=== PATIENT | male | born 1955 | race Caucasian/White ===

== ENCOUNTER → 2018-04-26 09:11 | Outpatient (REF) | payer OTHER, SELFPAY ==
[2018-04-26 14:17] LABS: HCT 48.4 % (40.0-50.0); HGB 15.7 g/dL (13.5-17.5); Mean Corp. HGB Concentration 32.4 g/dL (32.0-36.0); Mean Corpuscular Hemoglobin 27.2 pg (27.0-33.0); Mean Corpuscular Volume 83.7 fL (80-95); Mean Platelet Volume 11.8 fL (8.0-11.0); Platelet Count 172 x1000/uL (130-400); RBC 5.78 m/cumm (4.50-6.00); White Blood Cell Count 9.24 k/cumm (4.4-10.8)
[2018-04-26 14:35] LABS: ALT 20 U/L (12-78); AST 23 U/L (15-37); Albumin 3.9 g/dL (3.4-5.0); Alkaline Phosphatase 93 U/L (46-116); Anion Gap 12.5 mmol/L (3-11); BUN 13 mg/dL (7-18); Bilirubin, Total 0.3 mg/dL (0.2-1.0); CO2 22.5 mmol/L (21.0-32.0); CREATININE 1.12 mg/dL (0.70-1.30); Calcium 8.7 mg/dL (8.5-10.1); Chloride 105 mmol/L (98-107); Glucose 92 mg/dL (70-100); Potassium 4.4 mmol/L (3.5-5.1); Sodium 140 mmol/L (136-145); Total Protein 7.3 g/dL (6.4-8.2)
[2018-04-29 09:09] LABS: HCV RNA Detection Quantitative Undetected IU/mL (UNDECT)
== END ==
LOC: NCHCN 09:11
PROVIDERS: PCP Family Medicine; Visit Provider Family Medicine
DX: B19.20 Unspecified viral hepatitis C without hepatic coma (principal); Z11.51 Encounter for screening for human papillomavirus (HPV)
CPT/HCPCS: 80053; 85027; 86803; 87522

== ENCOUNTER 2018-09-05 15:21 | Outpatient (REF) | payer OTHER, SELFPAY ==
[2018-09-05 17:54] LABS: HCT 50.3 % (40.0-50.0); HGB 15.9 g/dL (13.5-17.5); Mean Corp. HGB Concentration 31.6 g/dL (32.0-36.0); Mean Corpuscular Volume 85.4 fL (80-95); Mean Platelet Volume 12.8 fL (8.0-11.0); Platelet Count 168 x1000/uL (130-400); RBC 5.89 m/cumm (4.50-6.00); RBC Distribution Width 14.8 % (11.8-14.1); White Blood Cell Count 9.58 k/cumm (4.4-10.8)
[2018-09-05 18:21] LABS: ALT 23 U/L (12-78); AST 23 U/L (15-37); Albumin 3.1 g/dL (3.4-5.0); Alkaline Phosphatase 84 U/L (46-116); Anion Gap 11.4 mmol/L (3-11); BUN 12 mg/dL (7-18); Bilirubin, Total 0.3 mg/dL (0.2-1.0); CO2 23.6 mmol/L (21.0-32.0); Chloride 105 mmol/L (98-107); Glucose 94 mg/dL (70-100); Potassium 4.2 mmol/L (3.5-5.1); Sodium 140 mmol/L (136-145); Total Protein 7.4 g/dL (6.4-8.2)
[2018-09-07 14:42] LABS: HCV RNA Detection Quantitative Undetected IU/mL (UNDECT)
== END 2018-09-05 15:41 ==
LOC: NCHCN 15:21
PROVIDERS: PCP Family Medicine; Visit Provider Family Medicine
DX: B19.20 Unspecified viral hepatitis C without hepatic coma (principal)
CPT/HCPCS: 80053; 85027; 87522

== ENCOUNTER 2019-08-16 00:58 | Outpatient (CLI) | payer MEDICARE, SELFPAY ==
--- NOTE | 2019-08-16 08:09 | DI.US_ITS ---
EXAM: US AAA SCREENING CLINICAL HISTORY: ? AAA, H/O SMOKING, PREVENTATIVE HEALTH CARE,Z00.00 TECHNIQUE: Ultrasound performed using standard protocol. COMPARISON: ABD PELVIS WITH CONTRAST from 02/19/2016 FINDINGS: There is no evidence of an abdominal aortic aneurysm. There is mild mural calcification. The proxim al iliac arteries are normal in diameter. No ascites is seen. IMPRESSION: No evidence of abdominal aortic aneurysm. Mild atherosclerotic changes.
== END 2019-08-16 01:18 ==
PROVIDERS: PCP Family Medicine; Visit Provider Nurse Practitioner Family
DX: Z87.891 Personal history of nicotine dependence; Z13.6 Encounter for screening for cardiovascular disorders
CPT/HCPCS: 76706

== ENCOUNTER → 2019-09-08 03:35 | Outpatient (CLI) | payer MEDICARE, SELFPAY ==
--- NOTE | 2019-09-08 14:06 | DI.US_ITS ---
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 COMPARISON: US AAA SCREENING from 08/16/2019 FINDINGS: Bilateral duplex evaluation of the carotid circulation was performed. There is mild visible atheroma tous plaque in the carotid bulbs bilaterally. There is bilateral antegrade vertebral flow. Flow violeta ocities in the common internal and external carotid arteries are within normal limits bilaterally. IMPRESSION: No evidence of a hemodynamically significant carotid stenosis.
== END ==
PROVIDERS: PCP Family Medicine; Visit Provider Family Medicine
DX: H34.232 Retinal artery branch occlusion, left eye (principal); I65.23 Occlusion and stenosis of bilateral carotid arteries
CPT/HCPCS: 93880

== ENCOUNTER 2020-10-21 16:07 | Outpatient (REF) | payer OTHER, SELFPAY ==
[2020-10-21 17:51] LABS: CREATININE 0.9 mg/dL (0.70-1.30); Calculated LDL 117 mg/dL (<100); Cholesterol 176 mg/dL (<200); HDL Cholesterol 43 mg/dL (40-60); Triglyceride 82 mg/dL (<150)
== END 2020-10-21 16:08 | disposition home or self-care (01) ==
LOC: NCHCN 16:07
PROVIDERS: PCP Family Medicine; Visit Provider Family Medicine
DX: F17.200 Nicotine dependence, unspecified, uncomplicated (principal); E78.89 Other lipoprotein metabolism disorders
CPT/HCPCS: 80061; 82565

== ENCOUNTER 2020-11-05 02:20 | Outpatient (CLI) | payer OTHER, SELFPAY ==
--- NOTE | 2020-11-05 13:30 | DI.CTLCSR_ITS ---
EXAM: CT CHEST LUNG CANCER SCREEN CLINICAL HISTORY: TOBACCO ABUSE, F17.210 TECHNIQUE: Imaging Protocol: Axial computed tomography images with coronal and sagittal reformatted images were created and reviewed COMPARISON: CT ABD PELVIS WITH CONTRAST from 02/19/2016 FINDINGS: Tracheobronchial tree: Patent where visualized. Pulmonary parenchyma: Atelectasis or scarring in the lower lobes. Mild paraseptal emphysema. Lung Nodules: There is a 0.4 cm pulmonary nodule in the right upper lobe (series 7 image 144). There is a ground-glass opacity in the posterior aspect of the right upper lobe. This measures 0.5 cm. Mediastinum and Moira: No dominant adenopathy or fluid collection. Pleura: No effusion or pneumothorax. Heart: The heart is not dilated. No coronary artery calcifications are seen. No pericardial effusion . Aorta: Thoracic aorta non-dilated.Atherosclerosis. Upper abdomen: Unremarkable. Scattered hypodense lesions are seen within the liver consistent with c ysts. These appear stable compared to the CT examination from 02/19/2016. Soft Tissues: Unremarkable. Bones: Within normal limits. Old right rib deformity. Degenerative changes in the spine. IMPRESSION: Right upper lobe pulmonary nodules. Lung RADS Cat 2 - Benign Appearance / Behavior: Nodules with a very low likelihood of becoming a clin ically active cancer due to size or lack of growth Lung-RADS 1.0 CATEGORIES: Category 0 - Prior chest CT exam(s) being located for comparison. Category 1 - Annual screening in 12 months. No nodules or definitely benign nodules. Category 2 - Annual screening in 12 months. Benign appearance. Nodules with low likelihood of becomin g active cancer. Category 3 - 6-month follow-up. Probably benign. Short-term follow-up suggested. Nodules with low lik elihood of becoming active cancer. Category 4A - 3-month follow-up and CT/PET if >8 mm in size. Suspicious finding. Findings which requi re additional testing. Category 4B - Findings which require additional testing and tissue sampling. Suspicious finding. Modifier S- Potentially clinically significant finding. (Non lung cancer) RADIATION DOSE DELIVERED: 97.4mGy.cm Total DLP 97.4mGy.cm Total DLP CTDIvol DATA REPOSITORY: All CT scans at this facility are submitted to the National Radiology Data Registry (NRDR) Dose Index Registry (DIR) with the [employer] (A[employer]). RADIATION OPTIMIZATION: All CT scans at this facility use at least one of these dose optimization te chniques: automated exposure control; mA and/or kV adjustment per patient size (includes targeted exa ms where dose is matched to clinical indication); or iterative reconstruction.
== END 2020-11-05 02:40 ==
PROVIDERS: PCP Family Medicine; Visit Provider Family Medicine
DX: F17.210 Nicotine dependence, cigarettes, uncomplicated (principal); R91.8 Other nonspecific abnormal finding of lung field
CPT/HCPCS: 71271

== ENCOUNTER 2021-08-26 11:42 | Emergency (ER) | payer MEDICARE, SELFPAY ==
[2021-08-26 11:50] VITALS: BP 152/77; PULSE 82; RESP 16; TEMP 36.8; O2SAT 91
--- NOTE | 2021-08-26 12:00 | DI.RAD_ITS ---
Exam(s) XR PORTABLE CHEST AP EXAM: XR PORTABLE CHEST AP CLINICAL HISTORY: cough, congestion TECHNIQUE: COMPARISON: CR CHEST 2 VIEWS PA,LAT from 01/16/2018 FINDINGS: Portable AP chest at 1211 hours. Heart is not enlarged. Lungs appear grossly clear. Old right thor acic deformity again noted, no change from December 2017. No pleural effusion on this frontal film. IMPRESSION: No evidence of acute process. RADIATION DOSE DELIVERED: Total DLP
--- NOTE | 2021-08-26 12:03 | ED.GENADUL_ITS ---
Discharge Plan Disposition Patient Disposition: HOME Condition: Improving Discharge Details Clinical Impression: Acute bronchitis with bronchospasm Primary Care Provider: Scott Yoon ED Provider: George Garcia Home Meds and New Rx's Prescriptions: New doxycycline hyclate 100 mg capsule 100 mg PO BID 10 Days Qty: 20 RF: 0 prednisone 50 mg tablet 50 mg PO DAILY 5 Days Qty: 5 RF: 0 Continued albuterol sulfate [ProAir HFA] 200 PUFF/INH HFA aerosol inhaler 2 puff Inhalation Q4H PRN PRNRF: 0 atorvastatin 40 mg tablet 40 mg PO QPM RF: 0 Incruse Ellipta 62.5 mcg/actuation blister with device 1 inh INHALATION DAILY RF: 0 Discharge Instructions Instructions: Acute Bronchitis (ED) Additional Instructions: Please take antibiotics and prednisone as prescribed. Return to the emergency room for any acute concerns. You will receive a call regarding your COVID-19 test results. Stand Alone Forms: PENDING COVID-19 TESTING Medical Decision Making 66-year-old male with a history of COPD presents with 3 to 4 days of cough, congestion, subjective fever and chills in context of his having upper respiratory illness in their home. He is fully immunized against COVID-19. No current steroids. He has been using his inhaler 2 times per day. Patient is interactive and well-appearing. His oxygenation is 91% on room air and his exam reveals bilateral?Tory wheeze. Differential includes bronchitis with COPD sedation, pneumonitis, walking pneumonia. Patient had screening COVID-19 test, was given oral prednisone, DuoNeb and referred for chest x-ray. Chest x-ray: No acute findings. Improved with DuoNeb. Room air oxygenation is 92 to 93%. No distress. Patient's presentation is consistent with bronchitis. His COVID-19 test is pending. Will treat with a course of prednisone and doxycycline. He understands homecare and return precautions. HPI General Mode of arrival: ambulatory . Date/Time Provider Initiated Documentation: 08/26/21 11:43 . Limitations to Documentation: no limitations . Information obtained by: patient . History of Present Illness 66 year old M presents to the emergency department with the chief complaint of Cough, congestion, described as moderate and similar to prior episodes, and is localized to the chest. Patient reports no radiation. Patient started experiencing this day(s) and it has been intermittent. No relieving factors improve symptom(s), No exacerbating factors reported . Patient notes cough and fever/chills; denies chest pain, loss of appetite, nausea/vomiting and shortness of breath. Patient did receive the following treatments prior to arrival, none Related Data Home Medications Medication Instructions Recorded Confirmed albuterol sulfate [ProAir HFA] 2 puff INHALATION Q4H PRN PRN 01/16/18 08/26/21 Incruse Ellipta 1 inh INHALATION DAILY 08/26/21 08/26/21 atorvastatin 40 mg PO QPM 08/26/21 08/26/21 doxycycline hyclate 100 mg PO BID 10 Days #20 cap 08/26/21 prednisone 50 mg PO DAILY 5 Days #5 tab 08/26/21 Previous Rx's Medication Instructions Recorded doxycycline hyclate 100 mg PO BID 10 Days #20 cap 08/26/21 prednisone 50 mg PO DAILY 5 Days #5 tab 08/26/21 Allergies Allergy/AdvReac Type Severity Reaction Status Date / Time Sulfa (Sulfonamide AdvReac Intermediate Swelling/Ed Unverified 08/26/21 11:59 Antibiotics) cristobal General Stated Complaint: RespSymp ADELE: 3 Review of Systems Narrative: Using inhaler 2 times per day. Stopped smoking this summer. Immunized against Covid x3. Positive sick contacts with his . Feels congestion, minimal sputum production. 8 systems reviewed and otherwise negative PFSH All Active Problems (Updated 08/26/21 @ 12:30 by George Garcia MD) Acute bronchitis with bronchospasm (Acute) Social History Smoking/Tobacco Use Status: Former Tobacco Use Quit Date: 02/27/21 Smoking risk assessment performed?: Yes Alcohol Intake: current Alcohol Intake frequency: holidays/special occasions only Alcohol type: beer Drug use: Never Substance use type: marijuana Do you feel safe at home: Yes Do you feel safe in your relationship?: Yes Exam Narrative Exam Narrative: GEN: awake, alert, oriented 3. Pleasant, well groomed, interactive. HEAD: Normocephalic, atraumatic ENT: Mucous membranes moist, oropharynx unremarkable, External ear exam unremarkable EYES: PERRL, EOMI NECK: Full ROM, no CHAI, no menigismus CHEST/RESP: Nontender, few scant end expiratory wheeze bilateral CARDIOVASCULAR: RRR, no murmur, rub vinicio. 2+ Rad pulse bilateral ABDOMEN: Soft, nontender, no mass. +Bowel sounds EXT: Full ROM, no edema, no rash Neuro: Grossly normal neurologic exam, conversant, interactive. Psych: Speech fluent, thoughts congruent, affect normal Course Vital Signs Vital signs: Vital Signs Temperature 36.8 C 08/26/21 11:50 Pulse 82 08/26/21 11:50 Respiratory Rate 16 08/26/21 11:50 Blood Pressure 152/77 H 08/26/21 11:50 Pulse Oximetry 91 L 08/26/21 11:50 Temperature 36.8 C 08/26/21 11:50 Temperature Source Temporal Artery Scan 08/26/21 11:50 Pulse 82 08/26/21 11:50 Respiratory Rate 16 08/26/21 11:50 Respiratory Effort Non-Labored 08/26/21 11:56 Blood Pressure 152/77 H 08/26/21 11:50 Blood Pressure Position Sitting 08/26/21 11:50 Pulse Oximetry 91 L 08/26/21 11:50 Oxygen Delivery Method Room Air 08/26/21 11:50 Oxygen Flow Rate 0 08/26/21 11:50 Pain Level 0 08/26/21 11:50 Comment 08/26/21 11:50
[2021-08-26] MEDS: predniSONE 20 MG TAB 60 MG PO (12:10)
[2021-08-26 12:12] VITALS: PULSE 83; RESP 16; RESP 4; O2SAT 90
[2021-08-26] MEDS: Albuterol/Ipratropium 3 ML UPD VIAL UPD (12:12)
[2021-08-27 15:08] LABS: COVID-19 RT-PCR UVMMC Result Negative (Negative)
--- NOTE | 2021-08-27 17:34 | NUR.NOTE ---
negative covid result relayed to pt via phone.Nursing Note:
== END 2021-08-26 14:19 | disposition home or self-care (01) ==
PROVIDERS: Emergency Provider Emergency Medicine; PCP Family Medicine
DX: J20.9 Acute bronchitis, unspecified (principal); Z87.891 Personal history of nicotine dependence; R50.9 Fever, unspecified; Z20.822 Contact with and (suspected) exposure to COVID-19; R05.1 Acute cough
CPT/HCPCS: 94640; 99283; U0003; U0005; 71045; J7512; J7620

== ENCOUNTER 2021-10-20 16:19 | Outpatient (REF) | payer OTHER, SELFPAY ==
[2021-10-20 14:30] LABS: HGB 16.4 g/dL (13.5-17.5); MCHC 31.5 % (32.0-36.0); MCV 85.5 fL (80-95); MPV 12.1 fL (8.0-11.0); Platelet Count 191 10^3/uL (130-400); RBC 6.08 10^6/uL (4.36-5.78); RDW 13.2 % (11.8-14.1); RDW-SD 41.4 fL
[2021-10-20 14:43] LABS: Anion Gap 10.8 mmol/L (3-11); BUN 13 mg/dL (7-18); CO2 24.2 mmol/L (21.0-32.0); Calcium 9.2 mg/dL (8.5-10.1); Calculated LDL 84 mg/dL (<100); Chloride 106 mmol/L (98-107); Cholesterol 154 mg/dL (<200); Glucose 97 mg/dL (74-106); HDL Cholesterol 47 mg/dL (40-60); Potassium 4.6 mmol/L (3.5-5.1); Sodium 141 mmol/L (136-145); Triglyceride 115 mg/dL (<150)
== END 2021-10-20 16:20 | disposition home or self-care (01) ==
LOC: NCHCN 16:19
PROVIDERS: PCP Family Medicine; Visit Provider Family Medicine
DX: E78.5 Hyperlipidemia, unspecified (principal); Z00.00 Encounter for general adult medical examination without abnormal findings
CPT/HCPCS: 80048; 80061; 85027

== ENCOUNTER 2021-11-12 18:53 | Outpatient (REF) | payer OTHER, SELFPAY ==
[2021-11-18 11:27] LABS: JAK2 Result see interpretation
== END 2021-11-12 18:54 | disposition home or self-care (01) ==
LOC: NCHCN 18:53
PROVIDERS: PCP Family Medicine; Visit Provider Family Medicine
DX: D75.1 Secondary polycythemia (principal)
CPT/HCPCS: 82668; 81270

== ENCOUNTER → 2021-12-05 01:04 | Outpatient (CLI) | payer OTHER, SELFPAY | PROVIDERS: PCP Family Medicine; Visit Provider Family Medicine ==

== ENCOUNTER 2021-12-23 16:07 | Emergency (ER) | payer OTHER, SELFPAY ==
[2021-12-23] VITALS (12 sets, daily range): BP systolic 131–159; BP diastolic 54–77; PULSE 88–101; RESP 14–24; TEMP 36.9; O2SAT 88–94
--- NOTE | 2021-12-23 16:00 | RT.EKG_ITS ---
APPROVED REPORT Exam: Resting ECG Reason for Exam: overdose Patient Location: E HR:90 bpm ECG Measurements Heart Rate 90 AXIS DE 160 P 65 QRSd 88 QRS 3 QT 382 T 82 QTc 467 Conclusion Sinus rhythm...normal P axis, V-rate 60- 99 Anterior Q >40mS, abnormal ST-T, V2-V5
--- NOTE | 2021-12-23 16:11 | W.ED.GENAD ---
Discharge Plan Disposition Patient Disposition: HOME Condition: Improving Discharge Details Clinical Impression: Overdose of drug Primary Care Provider: Scott Yoon ED Provider: George Garcia Home Meds and New Rx's Prescriptions: Continued albuterol sulfate [ProAir HFA] 200 PUFF/INH HFA aerosol inhaler 2 puff Inhalation Q4H PRN PRN0RF atorvastatin 40 mg tablet 40 mg PO QPM 0RF Label Comments: TAKE 1 TABLET BY MOUTH EVERY NIGHT AT BEDTIME TO PREVENT STROKES Incruse Ellipta 62.5 mcg/actuation blister with device 1 inh INHALATION DAILY 0RF Discharge Instructions Instructions: Adult Overdose (ED) Additional Instructions: Please do not use or abuse illicit drugs. You could have today from overdose. Return if you have difficulty breathing, develop chest pain, or any other acute concerns. Continue your routine medications. Medical Decision Making This is a 66-year-old male brought to the hospital via EMS. He was reported to have used IV cocaine that was given to him by a friend. He was in his car was reported to be seen not breathing and cyanotic by a bystander who administered chest blows and Narcan intranasally with the patient regaining consciousness. He was interviewed at the scene by [facility] police and subsequently transported to the emergency department for evaluation by EMS. He arrives awake, alert and interactive. He has a history of COPD and initial room air oxygenation was 91%. With good respiratory effort it improved to 95 to 96%. Patient denies chest pain. States he feels normal. He states he not been recently ill. Patient was observed, a chest x-ray was obtained. No acute infiltrates present. Discussed with patient further work-up which he declines. He demonstrates to me capacity to request discharge to home. He is stable and appropriate to discharge at this time. Patient admonished to avoid the use of illegal drugs. HPI General Mode of arrival: EMS. Date/Time Provider Initiated Documentation: 12/23/21 16:14. Limitations to Documentation: no limitations. Information obtained by: patient and EMS. History of Present Illness 66 year old M presents to the emergency department with the chief complaint of Overdose, now improved, described as moderate, Patient reports no radiation. Patient started experiencing this unknown and it has been now resolved. improves with No relieving factors improve symptom(s), No exacerbating factors reported . Patient did receive the following treatments prior to arrival, other (Given Narcan by bystander) Related Data Home Medications Medication Instructions Recorded Confirmed albuterol sulfate 90 mcg/actuation 2 puff INHALATION Q4H PRN PRN 01/16/18 12/23/21 aerosol inhaler (ProAir HFA) atorvastatin 40 mg tablet 40 mg PO QPM 08/26/21 12/23/21 umeclidinium 62.5 mcg/actuation 1 inh INHALATION DAILY 08/26/21 12/23/21 blister powder for inhalation (Incruse Ellipta) Allergies Allergy/AdvReac Type Severity Reaction Status Date / Time Sulfa (Sulfonamide AdvReac Intermediate Swelling/Ed Unverified 12/23/21 16:15 Antibiotics) cristobal General ADELE: 3 Review of Systems Narrative: Denies current complaints. Was nauseated in the ambulance, improved with his friend. 6 systems reviewed and otherwise negative PFSH All Active Problems (Updated 12/23/21 @ 16:50 by George Garcia MD) Overdose of drug (Acute) Social History Smoking/Tobacco Use Status: Former Tobacco Use Quit Date: 02/27/21 Smoking risk assessment performed?: Yes Alcohol Intake: current Alcohol Intake frequency: holidays/special occasions only Alcohol type: beer Substance use type: marijuana and crack/cocaine Details: uses majuana regularly Do you feel safe at home: Yes Do you feel safe in your relationship?: Yes Exam Narrative Exam Narrative: GEN: awake, alert, oriented 3. Pleasant, well groomed, interactive. HEAD: Normocephalic, atraumatic ENT: Mucous membranes moist, oropharynx unremarkable, External ear exam unremarkable EYES: PERRL, EOMI NECK: Full ROM, no CHAI, no menigismus CHEST/RESP: Nontender, scattered end expiratory wheeze bilaterally CARDIOVASCULAR: RRR, no murmur, rub vinicio. 2+ Rad pulse bilateral ABDOMEN: Soft, nontender, no mass. +Bowel sounds EXT: Full ROM, no edema, no rash Neuro: Grossly normal neurologic exam, conversant, interactive. Psych: Speech fluent, thoughts congruent, affect normal
--- NOTE | 2021-12-23 16:15 | DI.RAD_ITS ---
Exam(s) XR CHEST 2V PA LATERAL EXAM: XR CHEST 2V PA LATERAL CLINICAL HISTORY: overdose, hx of COPD TECHNIQUE: 2D digital imaging was performed of the chest. Two images were obtained. PA and lateral views were obtained. COMPARISON: CR XR PORTABLE CHEST AP from 08/26/2021 FINDINGS: MEDIASTINUM: Normal. HEART: Normal. PULMONARY VASCULATURE: Normal. LUNGS: Clear. PLEURAL SPACE: No pleural effusion or pneumothorax. BONE:Within normal limits for the patient's age. Stable deformity of the right chest wall. OTHER FINDINGS:Normal. IMPRESSION: No acute pulmonary findings. DATA REPOSITORY: RADIATION DOSE DELIVERED:
== END 2021-12-23 17:11 | disposition home or self-care (01) ==
LOC: ER 17:10
PROVIDERS: Emergency Provider Emergency Medicine; PCP Family Medicine
DX: T40.5X1A Poisoning by cocaine, accidental (unintentional), initial encounter (principal); R40.4 Transient alteration of awareness; J44.9 Chronic obstructive pulmonary disease, unspecified
CPT/HCPCS: 93005; 99284; 71046; 93010; 99283

== ENCOUNTER 2022-03-05 20:11 | Emergency (ER) | payer OTHER, SELFPAY ==
[2022-03-05] VITALS (52 sets, daily range): BP systolic 133–174; BP diastolic 68–94; PULSE 77–90; RESP 7–23; TEMP 36.4; O2SAT 85–96
--- NOTE | 2022-03-05 20:00 | RT.EKG_ITS ---
APPROVED REPORT Exam: Resting ECG Reason for Exam: SP CPR Patient Location: E HR:87 bpm ECG Measurements Heart Rate 87 AXIS MT 153 P 64 QRSd 91 QRS 1 QT 400 T 82 QTc 481 Conclusion Sinus rhythm...normal P axis, V-rate 60- 99 Probable left atrial enlargement...P >50mS, <-0.10mV V1 Anterior infarct, old...Q >40mS, abnormal ST-T, V2-V5
--- NOTE | 2022-03-05 20:15 | DI.RAD_ITS ---
Exam(s) XR PORTABLE CHEST AP EXAM: XR PORTABLE CHEST AP CLINICAL HISTORY: copd TECHNIQUE: 2D digital imaging was performed. COMPARISON: CR XR CHEST 2V PA LATERAL from 12/23/2021 FINDINGS: LUNGS: Mild fibrotic changes, otherwise clear. No pleural abnormality seen. HEART: Normal. AORTA: Normal. BONES: Old bilateral rib deformities. Soft tissues: Unremarkable. IMPRESSION: No acute findings. DATA REPOSITORY: RADIATION DOSE DELIVERED:
--- NOTE | 2022-03-05 20:24 | ED.GENADUL_ITS ---
Discharge Plan Disposition Patient Disposition: HOME Condition: Stable Discharge Details Clinical Impression: Opiate overdose, COPD (chronic obstructive pulmonary disease) Primary Care Provider: Scott Yoon ED Provider: Ron Corrigan Home Meds and New Rx's Prescriptions: New prednisone 20 mg tablet 60 mg PO DAILY 4 Days Qty: 12 0RF Continued albuterol sulfate [ProAir HFA] 200 PUFF/INH HFA aerosol inhaler 2 puff Inhalation Q4H PRN PRN atorvastatin 40 mg tablet 40 mg PO QPM Label Comments: TAKE 1 TABLET BY MOUTH EVERY NIGHT AT BEDTIME TO PREVENT STROKES Incruse Ellipta 62.5 mcg/actuation blister with device 1 inh INHALATION DAILY Discharge Instructions Instructions: COPD (Chronic Obstructive Pulmonary Disease) (ED) Additional Instructions: You were given narcan which reverses opiate overdoses so it is likely the crack you used had an opiate in it try to avoid drug use as it can be laced with other drugs follow up with your primary care provider within a week if you feel more ill, have severe pain or fevers reutrn to the emergency department Medical Decision Making 67 yo male with hx of copd and hld and intermittent use of crack and cocaine comes in tonight after he smoked crack and passed out. A similar episode happened earlier this year and was given narcan and became caox4 and was d/c'd after observation. He felt well all day today and smoked crack an hour or so ago and then shortly became less and less responsive so bystanders called ems. EMS found him unresponsive but breathing and en route gave him 1mg narcan and he slo wly came to and on arrival to the ED he is caox4. He has no complaints. He is not sure if the crack could have been laced with anything. He denies other drug or alcohol use and is currently clinically sober. NO focal deficits. He is noted to have wheezing in all lung martinez though denies dyspnea. Pupils are [place] so do suspect the drug he used was laced with an opiate especially given rapid improvement with the narcan. Will observe here for recurrence and need for more narcan and also give him a nebulizer and solumedrol for likely copd exacerbation from smoking of the drug. pt stable and has not needed any narcan after 1 hour observation. On room air awake he is 90% which I suspect is chronic from his copd. He still is asymptomatic, discussed with pt to avoid drug use. He declines narcan for home. He will f/u with his pcp and return precautions given Medical Records Medical records reviewed: Yes I reviewed the patient's medical records. Imaging Data Radiologic Study: Attestation: I personally reviewed and interpreted this imaging study as follows: Imaging: X-Ray Radiologist's impression: IMPRESSION: The lungs are hyperinflated, consistent with underlying small airways disease ECG Data Attestation: I personally reviewed and interpreted this ECG (s) as follows: Prior ECG tracings: available for review Interpretation: sinus rhythm, rate of [address] t wave ischemic findings HPI General Mode of arrival: EMS . Date/Time Provider Initiated Documentation: 03/05/22 20:12 . Limitations to Documentation: no limitations . Information obtained by: patient . History of Present Illness 67 year old M presents to the emergency department with the chief complaint of passed out after smoking crack, Patient started experiencing this hour(s) (1) and it has been now resolved. other things that improve symptom(s), (narcan) No exacerbating factors reported . Patient notes no other symptoms.. Patient did receive the following treatments prior to arrival, none Related Data Home Medications Medication Instructions Recorded Confirmed albuterol sulfate 90 mcg/actuation 2 puff inhalation Q4H PRN PRN 01/16/18 03/05/22 aerosol inhaler (ProAir HFA) atorvastatin 40 mg tablet 40 mg PO QPM 08/26/21 03/05/22 umeclidinium 62.5 mcg/actuation 1 inh inhalation DAILY 08/26/21 03/05/22 blister powder for inhalation (Incruse Ellipta) prednisone 20 mg tablet 60 mg PO DAILY 4 days #12 tabs 03/05/22 Previous Rx's Medication Instructions Recorded prednisone 20 mg tablet 60 mg PO DAILY 4 days #12 tabs 03/05/22 Allergies Allergy/AdvReac Type Severity Reaction Status Date / Time Sulfa (Sulfonamide AdvReac Intermediate Swelling/Ed Unverified 03/05/22 20:11 Antibiotics) cristobal General Stated Complaint: OD/Poison ADELE: 3 Review of Systems All systems reviewed & are unremarkable except as noted in HPI and below Constitutional Constitutional: Denies chills, Denies fever(s) and Denies weakness Cardiovascular Cardiovascular: Denies chest pain and Denies dyspnea Respiratory Respiratory: Denies cough and Denies dyspnea Gastrointestinal Gastrointestinal: Denies abdominal pain, Denies nausea and Denies vomiting Genitourinary Genitourinary: Denies dysuria Integumentary/Breasts Skin/Breast: Denies rash Neurologic Neurologic: Denies weakness PFSH All Active Problems (Updated 03/05/22 @ 21:38 by Ron Corrigan MD) Opiate overdose (Acute) COPD (chronic obstructive pulmonary disease) (Chronic) Social History Smoking/Tobacco Use Status: Former Tobacco Use Quit Date: 02/27/21 Smoking risk assessment performed?: Yes Alcohol Intake: current Alcohol Intake frequency: holidays/special occasions only Alcohol type: beer Substance use type: marijuana and crack/cocaine Details: uses majuana regularly Do you feel safe at home: Yes Do you feel safe in your relationship?: Yes Exam Const General: no acute distress Orientation: alert HENMT Head: normal to inspection Ears: external ears normal General nose exam: external nose normal Mouth: moist mucous membranes Eyes General: appearance normal, both eyes and all related structures Neck Neck: normal visual inspection Resp Effort & Inspection: normal respiratory effort and able to speak in complete sentences Cardio Rate: regular rate Skin General skin exam: no rashes or lesions noted Neuro General: patient alert and patient oriented x3 Extrem General: normal to inspection Psych Mental Status: mental status grossly normal Course Vital Signs Vital signs: Vital Signs Temperature 36.4 C L 03/05/22 20:03 Pulse 90 03/05/22 20:03 Respiratory Rate 14 03/05/22 20:03 Blood Pressure 174/94 H 03/05/22 20:03 Pulse Oximetry 96 03/05/22 20:03 Temperature 36.4 C L 03/05/22 20:03 Temperature Source Temporal Artery Scan 03/05/22 20:03 Pulse 90 03/05/22 20:03 Respiratory Rate 14 03/05/22 20:03 Respiratory Effort 03/05/22 20:03 Blood Pressure 174/94 H 03/05/22 20:03 Blood Pressure Position Supine 03/05/22 20:03 Pulse Oximetry 96 03/05/22 20:03 Oxygen Delivery Method Nasal Cannula 03/05/22 20:03 Oxygen Flow Rate 4 03/05/22 20:03 Pain Level 0 03/05/22 20:03
[2022-03-05] MEDS: Albuterol/Ipratropium 3 ML UPD VIAL UPD (20:56)
[2022-03-05] MEDS: methylPREDNISolone SUCC 125 MG VIAL IVP (20:56)
--- NOTE | 2022-03-05 21:19 | NUR.NOTE ---
Nursing Note: Provider aware of low O2 saturation, baseline for patient. Stable.
--- NOTE | 2022-03-05 21:32 | DI.VRAD_ITS ---
PROCEDURE INFORMATION: Exam: XR Chest Exam date and time: 03/05/2022 8:24 PM Age: 67 years old Clinical indication: Other: Copd TECHNIQUE: Imaging protocol: Radiologic exam of the chest. Views: 1 view. COMPARISON: CR XR CHEST 2V PA LATERAL 12/23/2021 4:37 PM FINDINGS: Lungs: There is diffuse mild nonspecific prominence of the pulmonary interstitium. The lungs are hyperinflated, consistent with underlying small airways disease. Pleural spaces: There is no evidence of pneumothorax. There are no pleural effusions present. Heart/Mediastinum: The cardiac structures are normal. The mediastinal contour is normal. Bones/joints: Evidence of prior trauma to the right thorax with deformity of the ribs and thickening of the pleura. The skeletal structures and soft tissues show no evidence of fracture or other acute processes. Soft tissues: The soft tissues of the extrathoracic region are unremarkable. IMPRESSION: The lungs are hyperinflated, consistent with underlying small airways disease. Dictated and Authenticated by: Phillip Call MD. Ordering:BEV Velasquez MD
== END 2022-03-05 21:52 | disposition home or self-care (01) ==
PROVIDERS: Emergency Provider Emergency Medicine; PCP Family Medicine
DX: T40.601A Poisoning by unspecified narcotics, accidental (unintentional), initial encounter (principal); R40.4 Transient alteration of awareness; J44.9 Chronic obstructive pulmonary disease, unspecified
CPT/HCPCS: 93005; 99284; 71045; 93010; 99283; J2930; J7620

== ENCOUNTER 2022-04-27 16:26 | Outpatient (REF) | payer OTHER, SELFPAY ==
[2022-04-27 16:44] LABS: Calculated LDL 133 mg/dL (<100); Cholesterol 200 mg/dL (<200); Estimated GFR 81.47 (mL/min/1.73m2); HDL Cholesterol 38 mg/dL (40-60); Triglyceride 148 mg/dL (<150)
[2022-04-29 09:50] LABS: HIV-1/2 Ag & Ab Screen Negative (Negative)
[2022-04-29 10:56] LABS: Hepatitis C Ab w Rflx HCV PCR Reactive (Negative)
[2022-04-30 12:20] LABS: HCV RNA Qualitative Undetected (Undetected)
== END 2022-04-27 16:27 | disposition home or self-care (01) ==
LOC: NCHCN 16:26
PROVIDERS: PCP Family Medicine; Visit Provider Family Medicine
DX: E78.5 Hyperlipidemia, unspecified (principal); Z72.0 Tobacco use; Z87.19 Personal history of other diseases of the digestive system; Z11.4 Encounter for screening for human immunodeficiency virus [HIV]; Z11.59 Encounter for screening for other viral diseases
CPT/HCPCS: 80061; 86803; 87389; 87522; 82565

== ENCOUNTER → 2022-04-28 02:19 | Outpatient (CLI) | payer OTHER, SELFPAY ==
--- NOTE | 2022-04-28 | DI.CTLCSR_ITS ---
Exam(s) CT CHEST LUNG CANCER SCREEN EXAM: CT CHEST LUNG CANCER SCREEN CLINICAL HISTORY: SCREENING FOR LUNG CA, CURRENT SMOKER, F17.210 TECHNIQUE: CT examination of the chest was performed utilizing low-dose lung cancer screening protoc ol. COMPARISON: CT CT CHEST LUNG CANCER SCREEN from 11/05/2020 FINDINGS: Images obtained through the upper abdomen show unremarkable appearance of visualized portions of the liver and spleen. Note is made of a small nonobstructing left renal calculus. Note is made of coronary artery calcification. There is no mediastinal or hilar adenopathy. Mediastinal vascular structures appear intact by noncon trast criteria. Tracheobronchial tree appears intact. No pleural effusion or pleural-based mass. A previously described ground-glass nodule of the right upper lobe seen adjacent to the major fissure is unchanged in appearance on today's examination, this measures roughly 10 millimeters in greatest diameter. No other significant intrapulmonary nodule seen.. IMPRESSION: Lung RADS Cat 2 - Benign Appearance / Behavior: Nodules with a very low likelihood of becoming a cli nically active cancer due to size or lack of growth Continue annual screening with LDCT in 12 months. Lung-RADS 1.0 CATEGORIES: Category 0 - Prior chest CT exam(s) being located for comparison. Category 1 - Annual screening in 12 months. No nodules or definitely benign nodules. Category 2 - Annual screening in 12 months. Benign appearance. Nodules with low likelihood of becomin g active cancer. Category 3 - 6-month follow-up. Probably benign. Short-term follow-up suggested. Nodules with low lik elihood of becoming active cancer. Category 4A - 3-month follow-up and CT/PET if >8 mm in size. Suspicious finding. Findings which requi re additional testing. Category 4B - Findings which require additional testing and tissue sampling. Suspicious finding. Category 4X - Category 3 or 4 nodules with additional features or imaging findings that increases the suspicion of malignancy. Modifier S- Potentially clinically significant finding. (Non lung cancer) RADIATION DOSE DELIVERED: 96.64mGy.cm Total DLP 2.21mGy CTDIvol 96.64mGy.cm Total DLP !Error CTDIvol DATA REPOSITORY: All CT scans at this facility are submitted to the National Radiology Data Registry (NRDR) Dose Index Registry (DIR) with the [employer] (ACR). RADIATION OPTIMIZATION: All CT scans at this facility use at least one of these dose optimization te chniques: automated exposure control; mA and/or kV adjustment per patient size (includes targeted exa ms where dose is matched to clinical indication); or iterative reconstruction.
== END ==
PROVIDERS: PCP Family Medicine; Visit Provider Family Medicine
DX: F17.210 Nicotine dependence, cigarettes, uncomplicated (principal); Z12.2 Encounter for screening for malignant neoplasm of respiratory organs
CPT/HCPCS: 71271

== ENCOUNTER 2022-09-16 15:39 | Outpatient (REF) | payer OTHER, SELFPAY ==
[2022-09-16 16:23] LABS: Calculated LDL 51 mg/dL (<100); Cholesterol 112 mg/dL (<200); HDL Cholesterol 48 mg/dL (40-60); Triglyceride 68 mg/dL (<150)
== END 2022-09-16 15:40 | disposition home or self-care (01) ==
LOC: NCHCN 15:39
PROVIDERS: PCP Family Medicine; Visit Provider Nurse Practitioner Family
DX: E78.5 Hyperlipidemia, unspecified (principal)
CPT/HCPCS: 80061

== ENCOUNTER → 2023-06-29 02:22 | Outpatient (CLI) | payer OTHER, SELFPAY ==
--- NOTE | 2023-06-29 | DI.CTLCSR_ITS ---
Exam(s) CT CHEST LUNG CANCER SCREEN EXAM: CT CHEST LUNG CANCER SCREEN CLINICAL HISTORY: HX OF TOBACCO ABUSE, Z87.891, SCREENING FOR LUNG CANCER TECHNIQUE: Imaging Protocol: Axial computed tomography images with coronal and sagittal reformatted images were created and reviewed COMPARISON: CT ABD PELVIS WITH CONTRAST from 02/19/[address] CHEST LUNG CANCER SCREEN from 04/28/2022 FINDINGS: Tracheobronchial tree: Patent where visualized. Pulmonary parenchyma: No consolidation or dominant measurable mass. Small right apical paraseptal ble bs are seen. Lung Nodules: The ground-glass nodule adjacent to the right major fissure in the right upper lobe is unchanged. No new pulmonary nodules are present. Mediastinum and Moira: No dominant adenopathy or fluid collection. The esophagus is unremarkable. Thyroid gland: Unremarkable. Lymph nodes: Unremarkable. Pleura: No effusion or pneumothorax. Heart: The heart is not dilated. Mild coronary artery calcification is present. No pericardial effus ion. Aorta: Thoracic aorta non-dilated.Atherosclerosis. Upper abdomen: There are stable hypodensities seen in the liver. These are unchanged compared to th e CT scan of the abdomen and pelvis from 02/19/2016 and likely reflect cysts. Soft Tissues: Unremarkable. Bones: Within normal limits for the patient's age. IMPRESSION: Stable right upper lobe pulmonary nodule. No new pulmonary nodules. Lung RADS Cat 2 - Benign Appearance / Behavior: Nodules with a very low likelihood of becoming a clin ically active cancer due to size or lack of growth Lung-RADS 1.0 CATEGORIES: Category 0 - Prior chest CT exam(s) being located for comparison. Category 1 - Annual screening in 12 months. No nodules or definitely benign nodules. Category 2 - Annual screening in 12 months. Benign appearance. Nodules with low likelihood of becomin g active cancer. Category 3 - 6-month follow-up. Probably benign. Short-term follow-up suggested. Nodules with low lik elihood of becoming active cancer. Category 4A - 3-month follow-up and CT/PET if >8 mm in size. Suspicious finding. Findings which requi re additional testing. Category 4B - Findings which require additional testing and tissue sampling. Suspicious finding. Category 4X - Category 3 or 4 nodules with additional features or imaging findings that increases the suspicion of malignancy. Modifier S- Potentially clinically significant finding. (Non lung cancer) RADIATION DOSE DELIVERED: Total DLP Total DLP DATA REPOSITORY: All CT scans at this facility are submitted to the National Radiology Data Registry (NRDR) Dose Index Registry (DIR) with the [employer] (ACR). RADIATION OPTIMIZATION: All CT scans at this facility use at least one of these dose optimization te chniques: automated exposure control; mA and/or kV adjustment per patient size (includes targeted exa ms where dose is matched to clinical indication); or iterative reconstruction.
== END ==
PROVIDERS: PCP Nurse Practitioner Family; Visit Provider Nurse Practitioner Family
DX: Z87.891 Personal history of nicotine dependence (principal); Z12.2 Encounter for screening for malignant neoplasm of respiratory organs; R91.1 Solitary pulmonary nodule
CPT/HCPCS: 71271

== ENCOUNTER 2023-12-01 10:36 | Outpatient (REF) | payer OTHER, SELFPAY ==
[2023-12-01 19:35] LABS: ALT 23 U/L (16-63); AST 33 U/L (15-37); Alkaline Phosphatase 92 U/L (46-116); Anion Gap 8.7 mmol/L (3-11); BUN 14 mg/dL (7-18); Bilirubin, Total 0.4 mg/dL (0.2-1.0); CO2 24.3 mmol/L (21.0-32.0); Calcium 8.9 mg/dL (8.5-10.1); Chloride 107 mmol/L (98-107); Estimated GFR 80.97 (mL/min/1.73m2); Glucose 115 mg/dL (74-106); Potassium 4.8 mmol/L (3.5-5.1); Sodium 140 mmol/L (136-145); Total Protein 7.2 g/dL (6.4-8.2)
== END 2023-12-01 10:37 | disposition home or self-care (01) ==
LOC: NCHCN 10:36
PROVIDERS: PCP Nurse Practitioner Family; Visit Provider Nurse Practitioner Family
DX: I10 Essential (primary) hypertension (principal)
CPT/HCPCS: 80053

== ENCOUNTER 2024-07-13 13:05 | Outpatient (REF) | payer OTHER, SELFPAY ==
[2024-07-13 15:36] LABS: ALT 25 U/L (16-63); AST 34 U/L (15-37); Alkaline Phosphatase 78 U/L (46-116); Anion Gap 9.8 mmol/L (3-11); BUN 11 mg/dL (7-18); Bilirubin, Total 0.39 mg/dL (0.2-1.0); CO2 25.2 mmol/L (21.0-32.0); Calcium 9.4 mg/dL (8.5-10.1); Calculated LDL 44 mg/dL (<100); Chloride 107 mmol/L (98-107); Cholesterol 115 mg/dL (<200); Estimated GFR 80.47 (mL/min/1.73m2); Glucose 108 mg/dL (74-106); HDL Cholesterol 57 mg/dL (40-60); Potassium 4.7 mmol/L (3.5-5.1); Sodium 142 mmol/L (136-145); Total Protein 7.6 g/dL (6.4-8.2); Triglyceride 71 mg/dL (<150)
[2024-07-13 16:36] LABS: Hemoglobin A1C 5.9 % (<5.7)
== END 2024-07-13 13:06 | disposition home or self-care (01) ==
LOC: NCHCN 13:05
PROVIDERS: Visit Provider Nurse Practitioner Family
DX: I10 Essential (primary) hypertension (principal)
CPT/HCPCS: 80053; 80061; 83036

== ENCOUNTER 2024-07-20 02:38 | Outpatient (CLI) | payer OTHER, SELFPAY ==
--- NOTE | 2024-07-20 11:08 | DI.CTLCSR_ITS ---
Exam(s) CT CHEST LUNG CANCER SCREEN EXAM: CT CHEST LUNG CANCER SCREEN CLINICAL HISTORY: EX CIGARETTE SMOKER, Z87.891, PERS H/O NICOTINE DEPENDENCE, SCREENING LUNG. TECHNIQUE: Imaging Protocol: Low Dose Technique CONTRAST MATERIAL: None COMPARISON: CT CT CHEST LUNG CANCER SCREEN from 04/28/[address] CHEST LUNG CANCER SCREEN from 06/29/2023 FINDINGS: CHEST: LUNGS: Previously described nodular infiltrate in the posterior segment of the right upper lobe adjac ent to the major fissure remains unchanged. There is also an unchanged tiny 1 millimeter peripherall y located nodule in left lower lobe. There are no new ominous pulmonary nodules. There are no conflu ent infiltrates. No pleural effusions. MEDIASTINUM: There is no obvious hilar nor mediastinal adenopathy. CARDIAC: Heart size is normal. There is no pericardial effusion.Caliber of the thoracic aorta is wit hin normal limits. OTHER: OSSEOUS: No significant osseous lesions.. IMPRESSION: 1. Stable unchanged findings as above. 2. No new nodules, new infiltrates, nor pleural effusions. 3. Lung RADS Cat 2 - Benign Appearance / Behavior: Nodules with a very low likelihood of becoming a c linically active cancer due to size or lack of growth Lung-RADS 1.0 CATEGORIES: Category 0 - Prior chest CT exam(s) being located for comparison. Category 1 - Annual screening in 12 months. No nodules or definitely benign nodules. Category 2 - Annual screening in 12 months. Benign appearance. Nodules with low likelihood of becomin g active cancer. Category 3 - 6-month follow-up. Probably benign. Short-term follow-up suggested. Nodules with low lik elihood of becoming active cancer. Category 4A - 3-month follow-up and CT/PET if >8 mm in size. Suspicious finding. Findings which requi re additional testing. Category 4B - Findings which require additional testing and tissue sampling. Category 4X - Category 3 or 4 nodules with additional features or imaging findings that increases the suspicion of malignancy. Modifier S- Potentially clinically significant findings (non lung cancer) RADIATION DOSE DELIVERED: 40.14mGy.cm Total DLP DATA REPOSITORY: All CT scans at this facility are submitted to the National Radiology Data Registry (NRDR) Dose Index Registry (DIR) with the [employer] (ACR). RADIATION OPTIMIZATION: All CT scans at this facility use at least one of these dose optimization te chniques: automated exposure control; mA and/or kV adjustment per patient size (includes targeted exa ms where dose is matched to clinical indication); or iterative reconstruction.
== END 2024-07-20 02:58 ==
LOC: DI 02:38
PROVIDERS: Visit Provider Nurse Practitioner Family
DX: Z87.891 Personal history of nicotine dependence (principal); Z12.2 Encounter for screening for malignant neoplasm of respiratory organs
CPT/HCPCS: 71271

== ENCOUNTER 2024-07-30 10:47 | Emergency (ER) | payer OTHER, SELFPAY ==
[2024-07-30] VITALS (24 sets, daily range): BP systolic 140–178; BP diastolic 66–89; PULSE 74–99; RESP 5–19; TEMP 36.8; O2SAT 89–100
--- NOTE | 2024-07-30 11:15 | DI.CT_ITS ---
Exam(s) CT ABDOMEN PELVIS W EXAM: CT ABDOMEN PELVIS W CLINICAL HISTORY: Epigastric abdominal pain TECHNIQUE: Imaging Protocol: Axial computed tomography images with coronal and sagittal reformatted images were created and reviewed. CONTRAST MATERIAL: Intravenous: Omnipaque 350 contrast volume:75 mL Oral: No COMPARISON: CT ABD PELVIS WITH CONTRAST from 02/19/[address] CHEST LUNG CANCER SCREEN from 11/05/[address] CHEST LUNG CANCER SCREEN from 07/20/2024 FINDINGS: ABDOMEN: Lung Bases: No acute infiltrates are seen in the lung bases. Liver: Normal density. Small cysts are again seen in the liver. No suspicious hepatic masses are pre sent. Portal, Superior Mesenteric, and Splenic Veins: Unremarkable. Gallbladder and Biliary Tract: No radiodense calculus or dilation. Pancreas: Normal density. No inflammatory process. There are again seen calcifications in the pancr eas which can be seen with prior episodes of pancreatitis. Spleen: Normal. Adrenals: No masses seen. Kidneys: Normal size, contour and axis. No radiodense stones or obstructive uropathy. There is again seen a left renal cyst. No follow-up is recommended. No suspicious renal masses are present. Abdominal Aorta: Abdominal portion non-dilated. Atherosclerotic calcification is present. Bowel: There is bowel wall thickening seen in the proximal transverse colon (series 10 images 59-78). (Series 4 images 13 through 24). This measures approximately 7 cm. The findings are concerning fo r a neoplasm. No evidence of appendicitis. Peritoneal Cavity: No ascites, collection or mesenteric inflammatory response. No free air. Lymph Nodes: Within normal limits. Bones: Within normal limits for the patient's age. There are degenerative changes seen in the spine. There is a depression in the superior endplate of L4 which was not present on the most recent exami [place] from 2015. It appear old. Soft Tissues: There is a small fat containing right inguinal hernia. PELVIS: Bladder: Symmetric distention, no gross wall thickening. Reproductive Organs: Mildly enlarged prostate gland. Lymph Nodes: Within normal limits. Bones: Within normal limits for the patient's age. IMPRESSION: 1. Bowel wall thickening seen in the proximal transverse colon. No significant inflammatory changes are seen around the bowel. Neoplasm should be considered. Further evaluation with a barium enema or colonoscopy is recommended. 2. Stable pancreatic calcifications likely reflecting history of pancreatitis. No evidence of acute pancreatitis. 3. Stable hepatic cysts since 2016. 4. Stable renal cyst. 5. Interval compression deformity of the superior endplate of L4 of indeterminate age. Unexpected findings RADIATION DOSE DELIVERED: 539.92mGy.cm Total DLP DATA REPOSITORY: All CT scans at this facility are submitted to the National Radiology Data Registry (NRDR) Dose Index Registry (DIR) with the [employer] (ACR). RADIATION OPTIMIZATION: All CT scans at this facility use at least one of these dose optimization te chniques: automated exposure control; mA and/or kV adjustment per patient size (includes targeted exa ms where dose is matched to clinical indication); or iterative reconstruction.
--- NOTE | 2024-07-30 11:15 | RT.EKG_ITS ---
APPROVED REPORT Exam: Resting ECG Reason for Exam: Abdominal pain Patient Location: E HR:76 bpm ECG Measurements Heart Rate 76 AXIS OH 147 P 69 QRSd 82 QRS 0 QT 379 T 88 QTc 423 Conclusion Sinus rhythm 76 +pvc normal axis no stemi
--- NOTE | 2024-07-30 11:24 | ED.GENADUL_ITS ---
Discharge Plan Disposition Patient Disposition: Home Condition: Stable Discharge Details Clinical Impression: Abdominal pain Primary Care Provider: Unknown,Unknown ED Provider: Yahaira Diaz Home Meds and New Rx's Prescriptions: New famotidine [Pepcid] 20 mg tablet 20 mg PO BID 14 Days Qty: 28 0RF ondansetron 4 mg tablet,disintegrating 4 mg PO Q6H PRN (Reason: nausea and vomiting) Qty: 20 0RF No Action albuterol sulfate [ProAir HFA] 200 PUFF/INH HFA aerosol inhaler 2 puff Inhalation Q4H PRN PRN atorvastatin 40 mg tablet 40 mg PO QPM Patient Comments: TAKE 1 TABLET BY MOUTH EVERY NIGHT AT BEDTIME TO PREVENT STROKES Incruse Ellipta 62.5 mcg/actuation blister with device 1 inh INHALATION DAILY Discharge Instructions Instructions: Abdominal Pain, Adult ED Additional Instructions: Lab work, EKG were all unremarkable today. Your CT scan did not reveal an acute cause of your epigastric abdominal pain. Take Pepcid as prescribed, Zofran as needed for nausea Start with a bland diet and advance slowly as you tolerate. Return with any worsening of symptoms or not tolerating anything by mouth Follow-up with your PCP as needed HPI General Date/Time Provider Initiated Documentation: 07/30/24 11:08 . Limitations to Documentation: no limitations . Information obtained by: patient . HPI Narrative: 69-year-old gentleman with past medical history of COPD, hyperlipidemia presents for evaluation of abdominal pain. He reports that around midnight last night he started with epigastric abdominal pain radiating over to the right flank. Pain has been constant since that time. No dysuria. No fever or vomiting. Has never had pain like this before. Reports occasional alcohol use, but no recent heavy drinking. Occasional smoking. Reports some mild constipation but is feeling like he needs to go to the bathroom. No exacerbating relieving factors. Related Data Home Medications ?Medication ?Instructions ?Recorded ?Confirmed albuterol sulfate 90 mcg/actuation 2 puff inhalation Q4H PRN PRN 01/16/18 07/30/24 aerosol inhaler (ProAir HFA) atorvastatin 40 mg tablet 40 mg PO QPM 08/26/21 07/30/24 umeclidinium 62.5 mcg/actuation 1 inh inhalation DAILY 12/28/21 12/01/24 blister powder for inhalation (Incruse Ellipta) famotidine 20 mg tablet (Pepcid) 20 mg PO BID 2 weeks #28 tabs 07/30/24 ondansetron 4 mg disintegrating 4 mg PO Q6H PRN nausea and 07/30/24 tablet vomiting #20 tabs Previous Rx's ?Medication ?Instructions ?Recorded famotidine 20 mg tablet (Pepcid) 20 mg PO BID 2 weeks #28 tabs 07/30/24 ondansetron 4 mg disintegrating 4 mg PO Q6H PRN nausea and 07/30/24 tablet vomiting #20 tabs Allergies Allergy/AdvReac Type Severity Reaction Status Date / Time Sulfa (Sulfonamide AdvReac Intermediate Swelling/Ed Verified 07/30/24 10:58 Antibiotics) cristobal General Stated Complaint: Abd Prob ADELE: 3 Exam Narrative Exam Narrative: Review of Systems: All systems reviewed & are unremarkable except as noted in HPI and below Well-developed, no acute distress NCAT PERRL, normal conjunctiva RRR no murmur Unlabored respiratory effort coarse breath sounds bilaterally, no tachypnea or hypoxia Nondistended abdomen, soft, epigastric and right upper quadrant tenderness with guarding, no rebound Extremities w/o edema no focal neurologic deficits Appropriate mood and affect Course Vital Signs Vital signs: Vital Signs Temperature 36.8 C 07/30/24 10:54 Pulse 79 07/30/24 10:54 Respiratory Rate 16 07/30/24 10:54 Blood Pressure 140/71 07/30/24 10:54 Pulse Oximetry 94 07/30/24 10:54 Temperature 36.8 C 07/30/24 10:54 Temperature Source Oral 07/30/24 10:54 Pulse 79 07/30/24 10:54 Pulse 78 07/30/24 11:20 Respiratory Rate 15 07/30/24 11:20 Respiratory Effort Normal 07/30/24 10:59 Blood Pressure 140/71 07/30/24 10:54 Pulse Oximetry 97 07/30/24 11:20 Oxygen Delivery Method Room Air 07/30/24 10:54 Oxygen Flow Rate 0 07/30/24 10:54 Pain Level 7 07/30/24 10:54 Medical Decision Making Emergent evaluation of abdominal pain. Patient is a 69-year-old gentleman that is otherwise healthy. Does have a significant family history of colon cancer but does report that he has had a colonoscopy that was normal. He does report smoking and drinking which increases his risk for pancreatitis. Unlikely to be anginal equivalent though he does have ACS risk factors. EKG reviewed and independently interpreted: Sinus 76 PVC normal axis no acute ischemic change. Plan for lab work, pain control, antiemetic and CT imaging of his abdomen to evaluate for acute intra-abdominal etiology. 1130 Labs reviewed. White blood cell count elevated at 16.6 1240 Remaining lab work reviewed. There is no electrolyte derangement. Normal renal function. LFTs are within normal limits. First troponin is not elevated. Lipase is not elevated either. Pending CT evaluation. Pain controlled and resolved after dose of IV morphine. CT report reviewed. There are some calcific changes noted in the pancreas however patient denies any history of prior pancreatitis episodes. His pain is resolved and he is tolerating p.o. This time I have a clear etiology for his symptoms. Will start Pepcid and Zofran at home. Strict return precautions advised. Recommend dietary changes including bland diet advance as tolerated. Recommend close follow-up with PCP. Quality:SDOH Health Related Social Needs: No Data to Display PFSH All Active Problems (Updated 07/30/24 @ 13:52 by Yahaira Diaz MD) Abdominal pain (Acute) Social History Smoking/Tobacco Use Status: Former Tobacco Use Quit Date: 02/27/21 Smoking risk assessment performed?: Yes Alcohol Intake: current Alcohol Intake frequency: holidays/special occasions only Alcohol type: beer Substance use type: marijuana and crack/cocaine Details: uses majuana regularly Do you feel safe at home: Yes Do you feel safe in your relationship?: Yes
[2024-07-30 11:25] LABS: Abs Immature Grans 0.07 10^3/uL (0.0-0.06); Absolute Basophil Count 0.05 10^3/uL (0.0-0.2); Absolute Lymphocyte Count 2.15 10^3/uL (1.2-3.4); Basophils % 0.3 %; Eosinophils % 0.4 %; HCT 54.8 % (40.0-50.0); HGB 17.2 g/dL (13.5-17.5); Immature Grans % 0.4 %; Lymphocytes % 12.9 %; MCH 27.1 pg (27.0-33.0); MCHC 31.4 % (32.0-36.0); MCV 86 fL (80-95); MPV 10.8 fL (8.0-11.0); Platelet Count 155 10^3/uL (130-400); RBC 6.34 10^6/uL (4.36-5.78); RDW 15.1 % (11.8-14.1); RDW-SD 46.6 fL; WBC 16.66 10^3/uL (4.4-10.8)
[2024-07-30 11:26] LABS: Absolute Eosinophil Count 0.07 10^3/uL (0.0-0.7); Absolute Monocyte Count 0.67 10^3/uL (0.1-0.8); Absolute Neutrophil Count 13.66 10^3/uL (1.2-6.7)
[2024-07-30] MEDS: Ondansetron 4 MG/2 ML VIAL IVP (11:33)
[2024-07-30] MEDS: MORPHine 10 MG/ML VIAL 4 MG IVP (11:33)
[2024-07-30 11:40] LABS: ALT 28 U/L (16-63); AST 29 U/L (15-37); Albumin 4.1 g/dL (3.4-5.0); Alkaline Phosphatase 85 U/L (46-116); BUN 17 mg/dL (7-18); Bilirubin, Total 0.56 mg/dL (0.2-1.0); CREATININE 1.1 mg/dL (0.70-1.30); Calcium 9.1 mg/dL (8.5-10.1); Chloride 103 mmol/L (98-107); Estimated GFR 71.77 (mL/min/1.73m2); Glucose 103 mg/dL (74-106); Potassium 4.5 mmol/L (3.5-5.1); Sodium 139 mmol/L (136-145); Total Protein 7.8 g/dL (6.4-8.2)
[2024-07-30 11:43] LABS: Lipase 30 U/L (<78); Troponin I 8 ng/L (<or=76)
[2024-07-30] MEDS: Omnipaque 350 MG/ML 100 ML BTL 75 ML IJ (11:53)
[2024-07-30] MEDS: Normal Saline - Diluent 50 ML VIAL IJ (11:56)
[2024-07-30 12:51] LABS: Troponin I 7 ng/L (<or=76)
--- NOTE | 2024-07-30 13:06 | DI.VRAD_ITS ---
PROCEDURE INFORMATION: Exam: CT Abdomen And Pelvis With Contrast Exam date and time: 07/30/2024 11:56 AM Age: 69 years old Clinical indication: Other: Epigastric abdominal pain TECHNIQUE: Imaging protocol: Computed tomography of the abdomen and pelvis with contrast. Contrast material: OMNIPAQUE 350; Contrast volume: 75 ml; Contrast route: INTRAVENOUS (IV); COMPARISON: CT CHEST LUNG CANCER SCREEN 07/20/2024 11:03 AM FINDINGS: Lungs: There is probable mild basilar atelectasis. There is no significant pleural effusion. Liver: There are a few small foci of low attenuation within the liver several of which are too small to characterize. The largest is seen within the lateral segment left lobe of the liver and may represent a small cyst. This measures approximately 9 mm on series 10, image 18. There is probable mild fatty infiltration of the liver Gallbladder and biliary ducts: No calcified gallstones are identified. There is no gallbladder wall thickening nor pericholecystic fluid. There is no significant biliary ductal dilatation. Pancreas: There are scattered calcifications within the pancreas likely related to chronic calcific pancreatitis. No definite peripancreatic inflammation is identified to suggest acute pancreatitis. There is no significant pancreatic duct dilatation. Spleen: Spleen is unremarkable Adrenal glands: Adrenals are unremarkable Kidneys and ureters: There is a cyst noted posteriorly at the upper pole of the left kidney. This measures approximately 3 cm in diameter on series 10, image 52. There is a minimal calcification at the inferior aspect of the cyst best seen on series 10, image 58. There is a punctate calcification within the right renal hilum which could be renal vascular. No definite radiopaque calculi are visualized. There is no hydronephrosis. There is no evidence of an enhancing renal cortical mass. Stomach and bowel: Evaluation of the bowel is limited in the absence of oral contrast. There is mild distension of several loops of small bowel but there is no specific evidence of bowel obstruction. There is no discrete mass or pneumatosis. Appendix: There are no findings to suggest acute appendicitis. Intraperitoneal space: No free fluid focal collections or free intraperitoneal air is identified. Vasculature: Atherosclerotic plaque is noted within the abdominal aorta which is nonaneurysmal. Lymph nodes: There are a few small retroperitoneal nodes. Largest is noted just below the level of the left renal hilum measuring approximately 20 x 15 mm on series 4, image 35. There are a few small internal iliac nodes. There are a few inguinal nodes which are not significantly enlarged. Urinary bladder: Bladder is nondistended. Reproductive: Prostate gland is mildly enlarged. Prostatic calcifications are noted. Bones/joints: There are compression deformities in the lumbar spine particularly involving the superior endplate of L4 where there is a large Schmorl's node. There is milder compression deformity of the superior endplate of L5. There are discogenic endplate changes noted. There is a Schmorl's node involving inferior endplate of T12. There are disc bulges, spondylitic changes of the endplates, uncovertebral and facet arthropathy. Degenerative changes lead to narrowing of the canal/stenosis at the level of the disc spaces most prominent at L3-L4, L4-L5. There is multilevel foraminal stenosis particularly at the lower 3 lumbar levels, especially at L5-S1, L4-L5. Soft tissues: There is a small fat containing right inguinal hernia. There is also a fat containing umbilical hernia. There is minimal dependent edema but no other significant subcutaneous abnormality is identified. IMPRESSION: 1. Pancreatic calcifications likely chronic calcific pancreatitis but no definite CT findings of acute pancreatitis. 2. Mild small bowel distension but no specific evidence of bowel obstruction 3. No free fluid focal collections or free intraperitoneal air. 4. There are few small foci of low attenuation within the liver incompletely characterized but may be small cysts. 5. Left upper pole renal cyst appears mildly complex with minimal wall calcification as described. 6. Compression deformities in the lumbar spine particularly involving the superior endplates of L4, L5. Lumbar spondylosis, degenerative disc disease.If further evaluation of the intervertebral discs, canal, cord, foramina is indicated MR correlation recommended. 7. prostate gland is enlarged. Dictated and Authenticated by: Lisa Andrade MD. Ordering:DARIA Haines MD
[2024-07-30] MEDS: Albuterol/Ipratropium 3 ML UPD VIAL UPD (13:56)
--- NOTE | 2024-08-02 15:09 | NUR.NOTE ---
Accessed Pt chart to complete a referral to General Surgery for a colonospy..
--- NOTE | 2024-08-02 15:12 | ED.FU.B_ITS ---
Date of service: 07/30/24 Follow Up Plan: Was notified today that radiology over read of the patient's CT scan was concerning for bowel wall thickening of the proximal transverse colon. Neoplasm cannot be excluded and a colonoscopy has been recommended. [facility] I have reached out to the patient he reports that he has had resolution of his symptoms and is feeling fine. He states that he does have a PCP, Kourtney Patiño. He has been advised about the updated findings and the referral to general surgery clinic for an emergent colonoscopy. I have made contact with his PCP office to facilitate the remainder of this work up.
== END 2024-07-30 14:23 | disposition home or self-care (01) ==
PROVIDERS: Emergency Provider Emergency Medicine
DX: R10.31 Right lower quadrant pain (principal); J44.9 Chronic obstructive pulmonary disease, unspecified; E78.5 Hyperlipidemia, unspecified; Z87.891 Personal history of nicotine dependence
CPT/HCPCS: 36415; 80053; 83690; 93005; 94640; 96374; 96375; 99285; 74177; 83735; 84484; 85025; 93010; 99284; J2270; J2405; J3490; J7620

== ENCOUNTER → 2024-08-07 14:18 | Outpatient (BNVA) | payer OTHER, SELFPAY | PROVIDERS: PCP Nurse Practitioner Family; Referring Provider Nurse Practitioner Family; Visit Provider Surgery | DX: R10.11 Right upper quadrant pain (principal); R11.2 Nausea with vomiting, unspecified; Z80.0 Family history of malignant neoplasm of digestive organs; Z12.11 Encounter for screening for malignant neoplasm of colon ==

== ENCOUNTER 2024-08-14 01:29 | Outpatient (CLI) | payer OTHER, SELFPAY ==
--- NOTE | 2024-08-14 07:00 | DI.US_ITS ---
Exam(s) US ABDOMEN EXAM: US ABDOMEN CLINICAL HISTORY: ruq abd pain,nausea, vomiting,r10.11,r11.2,cirrhosis of liver,k74.60 TECHNIQUE: Ultrasound abdomen performed using standard protocol. COMPARISON: US US AAA SCREENING from 08/16/[address] ABDOMEN PELVIS W from 07/30/2024 FINDINGS: ABDOMINAL AORTA AND IVC: Visualized portions normal caliber. PANCREAS: Normal where visualized. LIVER: There is increased echogenicity of the liver consistent with fatty infiltration. Hepatopetal flow in the Portal Vein. Hepatic cysts are seen. These are stable. No suspicious hepatic masses are seen sonographically. The liver measures 14.9cm long. GALLBLADDER:No evidence of cholelithiasis. No evidence of wall thickening. No pericholecystic fluid i dentified. BILIARY SYSTEM: Common bile duct measures < 7 mm. No intrahepatic biliary ductal dilation. ROBERTSON'S SIGN: Negative. KIDNEYS: Kidneys are symmetric in size. No evidence of renal calculi. There is mild prominence of the left renal pelvis. There is a stable left renal cyst. No follow-up is recommended. SPLEEN: Not enlarged. ASCITES: None seen. IMPRESSION: 1. Hepatic steatosis. No evidence of a solid or suspicious hepatic mass. 2. Stable left renal cyst. 3. Prominence of the left renal pelvis. This may represent extrarenal pelvis versus mild hydronephro sis. Please correlate clinically. DATA REPOSITORY:
== END 2024-08-14 01:49 ==
LOC: DI 01:29
PROVIDERS: PCP Nurse Practitioner Family; Visit Provider Surgery
DX: R10.11 Right upper quadrant pain; F10.11 Alcohol abuse, in remission; K74.60 Unspecified cirrhosis of liver
CPT/HCPCS: 76700

== ENCOUNTER 2024-08-28 17:29 | Outpatient (REF) | payer OTHER, SELFPAY ==
[2024-08-31 10:51] LABS: Fecal Immunochemical Test Positive (Negative)
[2024-08-31 22:21] LABS: Calprotectin 64.1 mcg/g
== END 2024-08-28 17:30 | disposition home or self-care (01) ==
LOC: LBN 17:29
PROVIDERS: PCP Nurse Practitioner Family; Visit Provider Surgery
DX: R10.9 Unspecified abdominal pain (principal); Z80.0 Family history of malignant neoplasm of digestive organs
CPT/HCPCS: 82274; 83630; 83993

== ENCOUNTER 2024-08-29 07:33 | Day surgery (SDC) | payer OTHER, SELFPAY ==
--- NOTE | 2024-08-28 22:53 | COLE_ITS ---
Date of service: 08/29/24 Time of Service: 10:26 Colonoscopy Report Date of procedure: 08/29/24 Pre-op diagnosis general: Abnormal CT/family history of colon cancer in mother and daughter/family hi Post-op diagnosis procedure note: other (Colon polyps/ulceration at 80 cm/internal hemorrhoids but) Surgeon: Vangie Morfin Anesthesia Type: General:No Airway Estimated blood loss (mL): 3 Pathology: other (Polyps, internal hemorrhoids, isolated ulcer at 80 cm of undetermined significance/biopsies pending at this time) Complications: None Disposition: same day Prep: Miralax/Dulcolax Retraction Time: 26 Procedure Description: After informed consent was obtained, explaining risks of the procedure, including but not limits to: bleeding, infections, complications of anesthesia, perforations (which may require antibiotics and /or surgery and stay in the hospital), and abdominal pain/cramping. The patient was taken to the procedure room and placed in a left decubitous position. Monitors were applied and a time out was done. The patients name, date of , procedure, allergies to medications and metal in their body was reviewed. The patient was then sedated. Once sedated and comfortable a rectal exam was done. External exam was normal. Internal exam revealed decreased sphincter tone and no palpable masses. The prostate no palpable abnormalities. The previously lubricated Olympus scope was then introduced (see RN notes for scope number) and retrofelexed. Grade 2 x 1 column internal hemorrhoids were identified. The scope was then advanced to the cecum without difficulty. The TI and appendiceal orifice were identified. The scope was then slowly retracted over 26 minutes back into the rectum. At 80 cm there is a singular lineal ulceration that is maybe 2 cm in length and 0.5 cm in width. It has a whitish eschar on it. There is no signs of active bleeding. There is no signs of ischemia. The surrounding tissue is all pink and healthy with a normal vascular pattern. There is no cobblestoning there is no loss of posterior. There is no signs of chronic inflammatory bowel disease. There is no signs of any other ischemia. It does not have the typical appearance of a malignancy. This area is tattooed using Jodee ink in all 4 quadrants. Multiple biopsies are taken. There is no significant bleeding after the biopsies are completed polyps: A pedunculated 0.75 cm polyp is found at 30 cm. This is removed with a cold snare. All specimen is retrieved and no bleeding is noted A flat, .5cm polyp was found at 20 cm This was removed with a cold biting forceps. All of the specimen was retrieved. This will be sent to pathology. There is no bleeding noted from the polypectomy site. Diverticula: None. the mucosa is pink and healthy w/ a normal vascular pattern. The scope was removed, and the patient was woken up and taken back to Same day surgery in stable condition. -Patient does have multiple risk factors for atherosclerosis and arterial disease. He did have a CTA of the abdomen which show no stenosis in the celiac or mesenteric arteries. The patient tolerated the procedure well and there were no immediate complications. Follow up: The patient should follow up in~5 years, path pending, unless they develop changes in bowel habits or other new gastrointestinal complaints. [place] Bowel Prep [place] Bowel Prep Right Colon: 3 Left Colon: 3 Transverse Colon: 3 Total Score: 9
--- NOTE | 2024-08-28 22:54 | PDOC.DSDIS_ITS ---
Date of service: 08/29/24 Discharge Plan Disposition Patient Disposition: Home Condition: Good Discharge Details Reason For Visit: colonscope Attending Provider: Vangie Morfin Primary Care Provider: Kourtney Patiño Home Meds and New Rx's Prescriptions: Continued albuterol sulfate [ProAir HFA] 200 PUFF/INH HFA aerosol inhaler 2 puff Inhalation Q4H PRN PRN ondansetron 4 mg tablet,disintegrating 4 mg PO Q6H PRN (Reason: nausea and vomiting) Qty: 20 0RF atorvastatin 40 mg tablet 40 mg PO QPM Patient Comments: TAKE 1 TABLET BY MOUTH EVERY NIGHT AT BEDTIME TO PREVENT STROKES Discontinued bisacodyl 5 mg tablet,delayed release (DR/EC) 5 mg PO ONCE Qty: 4 0RF Rx Instructions: Per Colonoscopy bowel prep instructions polyethylene glycol 3350 17 gram/dose powder 238 g PO ONCE Qty: 238 0RF Rx Instructions: For Colonoscopy bowel prep, as directed by office No Action Incruse Ellipta 62.5 mcg/actuation blister with device 1 inh INHALATION DAILY Discharge Instructions Additional Instructions: DSU Colonoscopy Post- Op Instructions Instructions for Everyone who is given Anesthesia: For your safety, please do the following for the next twenty-four (24) hours: *Do Not operate a motor vehicle (car, truck, motorcycle, etc.) *Do Not drink alcoholic beverages or use any recreational drugs for the first 24 hours or while taking pain medications. The medications in your body may have a reaction that can be dangerous. *Do Not make any important decisions or sign any important papers. Findings: colon polyps ulcer in colon - autoimmune (Crohn's vs ischemic) Follow up: 2 -3 wks 1. No lifting over 20 pounds or strenuous activity for the first 24 hours after your procedure. After 24 hours there are no restrictions on your activity but you may feel fatigued for a few days. 2. After you arrive home you may have a light meal and return to your normal diet as you can tolerate it without feeling sick to your stomach. 3. You may have a bloated, gaseous feeling in your belly (abdomen) after a colonoscopy. Passing gas and belching will help. Walking or lying down on your left side with your knees flexed may relieve the discomfort. Call the office at [phone] (Office) or [phone] (Hospital) right away if you notice any of the following: a.Vomiting of blood or ?coffee ground stools?. b.Rectal bleeding 1Tbsp, blood clots or continuous bleeding. c.Severe belly (abdominal) pain. d.A hard distended belly (abdomen) and an inability to pass gas. 4. Please don?t expect to have a normal BM (bowel movement) for 2-3 days after your procedure. 5. If there are questions regarding the findings of your procedure, please contact your doctor 6. If you are unable to contact your doctor with a problem, contact the hospital at [phone]. 7. Continue all your regular medications unless directed otherwise. I understand the above instructions and have no questions. Signature of Patient or Adult Escort Name of Responsible Adult Escort Signature of Nurse Date/Time Stand Alone Forms: Anesthesia Discharge Inst., Angy Herrera (DSU) Activity:: see above Diet:: see above Discharge Orders Discharge Orders: Discharge Order (Routine); Ordered 08/29/24 Ordered By: Vangie Morfin DS: Diagnosis Discharge Diagnosis (1) History of ETOH abuse: Status: Acute (2) Nausea and vomiting in adult: Status: Acute (3) RUQ abdominal pain: Status: Acute (4) Abdominal pain: Status: Acute (5) Family history of colon cancer in mother: Status: Acute Asessment and Plan: The patient is seen and examined after their colonoscopy.? The patient has been able to pass gas.? They are not having abdominal pain.? They have been able to tolerate liquids and a snack.? They do not have any nausea or vomiting.? They are not having any chest pain or shortness of breath.??? They are not having any rectal bleeding. Their vital signs have been stable-see nursing notes. We discussed findings during their colonoscopy, and any biopsies that were done /polyps that were removed. The patient will be sent a letter with any biopsy results, and when to repeat the colonoscopy.-see discharge instructions. Patient was given explicit instructions to follow-up regarding colonoscopy-refer to discharge instructions.? We reviewed resumption of medications. Patient verbalized understanding and discharged in stable and satisfactory condition- See nursing notes. (6) COPD (chronic obstructive pulmonary disease): (7) High cholesterol: (8) Metabolic dysfunction-associated steatohepatitis (MASH): Status: Acute
[2024-08-29 07:43] VITALS: BP 146/78; PULSE 73; RESP 14; TEMP 36.4; O2SAT 94
[2024-08-29] MEDS: Lactated Ringers 1,000 ML 80 ML IV (08:06)
--- NOTE | 2024-08-29 08:15 | ANES.PREOP_ITS ---
General Info Date of Service Date Performed: 08/29/24 Height: 5 ft 5 in Weight: 96.615 kg Body Mass Index (BMI): 35.4 Surgical Procedure: Operation Date: 08/29/24 08:35 Proposed Procedure Side Surgeon delaney Morfin, DO Meds Allergies and Home Medications Allergies Allergy/AdvReac Type Severity Reaction Status Date / Time Sulfa (Sulfonamide AdvReac Intermediate Swelling/Ed Verified 08/28/24 12:45 Antibiotics) cristobal Home Medication ?Medication ?Instructions ?Recorded albuterol sulfate 90 mcg/actuation 2 puff inhalation Q4H PRN PRN 01/16/18 aerosol inhaler (ProAir HFA) atorvastatin 40 mg tablet 40 mg PO QPM 08/26/21 umeclidinium 62.5 mcg/actuation 1 inh inhalation DAILY 08/26/21 blister powder for inhalation (Incruse Ellipta) ondansetron 4 mg disintegrating 4 mg PO Q6H PRN nausea and 07/30/24 tablet vomiting #20 tabs Current Visit Medications: Current Medications Generic Name Dose Route Start Last Admin Trade Name Freq PRN Reason Stop Dose Admin Hyoscyamine Sulfate 0.125 mg 08/29/24 10:50 Hyoscyamine 0.125 Mg Sl/Oral/Chew SL 09/28/24 10:49 DIRECTED PRN Ringer's Solution 1,000 mls @ 80 mls/hr 08/29/24 08:00 08/29/24 08:06 IV 09/28/24 07:59 80 mls/hr INFUSION SHANNON Administration IV Miscellaneous Supplies 1 each 08/29/24 06:00 Iv Access IV 08/29/24 23:59 DIRECTED SHANNON Ondansetron HCl 4 mg 08/29/24 10:50 Ondansetron 4 Mg/2 Ml Vial IVP 09/28/24 10:49 Q4H PRN PRN Nausea / Vomiting Sodium Chloride 0 ml 08/29/24 06:00 Normal Saline Flush 10 Ml Syr IV 08/29/24 23:59 PRN PRN Sodium Chloride 0 ml 08/29/24 06:00 Normal Saline 10 Ml Vial IJ 08/29/24 23:59 DIRECTED PRN Sterile Water 0 ml 08/29/24 06:00 Water,Injection,Sterile 10 Ml Vial IJ 08/29/24 23:59 DIRECTED PRN PFSH Active Problems Active Problems: Problem Status Onset Code Metabolic dysfunction-associated steatohepatitis (MASH) Acute K75.81 History of ETOH abuse Acute F10.11 Family history of colon cancer in mother Acute Z80.0 Nausea and vomiting in adult Acute R11.2 RUQ abdominal pain Acute R10.11 Abdominal pain Acute R10.9 Medical History Medical History High cholesterol COPD (chronic obstructive pulmonary disease) Tobacco Smoking/Tobacco Use Status: Former Tobacco Use Alcohol Alcohol Intake: current Alcohol intake frequency: holidays/special occasions only Alcohol type: beer Substance Use Substance use type: marijuana Details: uses maijuana regularly Vital Signs and Lab Results Vital Signs Most Recent Vital Signs in EMR: Most Recent Vital Signs Temp Pulse Resp BP Pulse Ox 36.4 C L 73 14 146/78 H 94 08/29/24 07:43 08/29/24 07:43 08/29/24 07:43 08/29/24 07:43 08/29/24 07:43 Lab Results Blood Type / Crossmatch: No Data to Display Complete Blood Count: White Blood Count 16.66 10^3/uL (4.4-10.8) H 07/30/24 11:18 Red Blood Count 6.34 10^6/uL (4.36-5.78) H 07/30/24 11:18 Hemoglobin 17.2 g/dL (13.5-17.5) 07/30/24 11:18 Hematocrit 54.8 % (40.0-50.0) H 07/30/24 11:18 Platelet Count 155 10^3/uL (130-400) 07/30/24 11:18 Complete Metabolic Panel: Sodium 139 mmol/L (136-145) 07/30/24 11:18 Potassium 4.5 mmol/L (3.5-5.1) 07/30/24 11:18 Chloride 103 mmol/L (98-107) 07/30/24 11:18 Carbon Dioxide 29.0 mmol/L (21.0-32.0) 07/30/24 11:18 BUN 17 mg/dL (7-18) 07/30/24 11:18 Creatinine 1.1 mg/dL (0.70-1.30) 07/30/24 11:18 Est GFR (CKD-EPI 2020) 71.77 (mL/min/1.73m2) 07/30/24 11:18 Magnesium 2.0 mg/dL (1.8-2.4) 07/30/24 11:18 Calcium 9.1 mg/dL (8.5-10.1) 07/30/24 11:18 Albumin 4.1 g/dL (3.4-5.0) 07/30/24 11:18 Glucose 103 mg/dL (74-106) 07/30/24 11:18 Liver Function Panel: Alanine Aminotransferase (ALT/SGPT) 28 U/L (16-63) 07/30/24 11: 18 Aspartate Amino Transf (AST/SGOT) 29 U/L (15-37) 07/30/24 11:18 Coagulation Panel: No Data to Display Cardiac Panel: Troponin I 7 ng/L (<or=76) 07/30/24 Arterial Blood Gas: No Data to Display Venous Blood Gas: No Data to Display Pancreas Panel: Lipase 30 U/L (<78) 07/30/24 11:18 Thyroid Panel: No Data to Display Infectious Disease: No Data to Display Blood Cultures: No Data to Display Toxicology Panel: No Data to Display Anesthesia Assessment and Plan Anesthesia History Personal History: No History of Anesthesia Complications Family History: No Family History of Anesthesia Complications Exercise Tolerance Exercise Tolerance: Metabolic Equivalents>4 Cardiac & Pulmonary Exam Cardiac Exam: Normal S1/S2 Heart Sounds Pulmonary Exam: Wheezing Present Implantable Cardiac Device Does patient have a Pacemaker or an ICD?: No Airway Exam Known Difficult Airway: No Mallampati Class: 4 Mouth Opening: Narrow (< 3cm) Thyromental Distance: Less than 3 cm Facial Hair: Full [place] Neck Range of Motion: Limited ROM Neck Circumference: Thick Teeth Condition: Removable Dentures/Plates Upper, Removable Dentures/Plates Lower and Edentulous ASA Classification ASA Score: ASA 3 Emergency Case?: No NPO Status NPO Status: NPO Clears >2 hours, Solids >8 hours Anesthesia Plan Resuscitation Status: Full Code Anesthesia Technique: General Anesthesia Airway Planned: Natural Airway Monitors Used: Standard Monitors Preoperative Comments:: 69 yo male for colo. Sig PMHx: COPD (albuterol, incruse ellipta. slight end expiratory wheeze today, duoneb ordered), fatty liver, former tobacco smoker, occ EtOH/daily cannabis, IVDA (2021 OD) . EKG: sinus PFTs: mild obstructive airway dz with no sig bronchodilator response. Carotid US: no sig carotid stenosis.
[2024-08-29 08:32] VITALS: BMI 35.4
[2024-08-29] MEDS: Albuterol/Ipratropium 3 ML UPD VIAL UPD (08:43)
--- NOTE | 2024-08-29 09:18 | BOWEL_PTH ---
PATIENT: Dreek Soto LOC: [facility] U#:[id number] AGE/SX: 69/M ROOM: RE08/29/[address]: Vangie Morfin : 1955 BED: DIS: 08/29/2024 SPEC #: [id number] RECD: 08/29/24 12:01 STATUS: ERASMO RE #: [id number] CHUY: 08/29/24 09:[address]: Vangie Morfin DEPT: Surgical Specimen RECD BY: Whit Rg ENTERED: 08/29/24 12:03 SP TYPE: Bowel OTHR DR: Kourtney Patiño Tissues: 1 - BIOPSY BOWEL 2 - BIOPSY BOWEL 3 - BIOPSY BOWEL Procedures: GROSS AND MICRO LEVEL 4 Comments: [id number]
[2024-08-29] MEDS: Endoscopic Tattoo 5 ML SYR IJ (09:35)
[2024-08-29 09:46] VITALS: BP 146/64; PULSE 84; RESP 18; TEMP 35.9; O2SAT 96
--- NOTE | 2024-08-29 09:50 | W.ANESPOSTOP ---
Postoperative Evaluation Date, Time and Location Date Performed: 08/29/24 Time Performed: 09:50 Patient Location: Day Surgery Unit Vital Signs Most Recent Imported Vital Signs: Most Recent Vital Signs Temp Pulse Resp BP Pulse Ox 35.9 C L 84 18 146/64 H 96 08/29/24 09:46 08/29/24 09:46 08/29/24 09:46 08/29/24 09:46 08/29/24 09:46 Pain Score Most Recent Pain Score: Most Recent Pain Score Pain Level 0 08/29/24 09:46 Assessment Mental Status: Awake (Alert & Oriented to Patient Baseline) Airway and Respiratory Function: Patent airway with normal (patient baseline) respiratory exam Cardiovascular Function: Hemodynamically Stable Hydration Status: Adequately Hydrated Nausea & Vomiting: No Nausea or Vomiting Pain: Pt. Denies Any Pain Peripheral Nerve Block: Patient did not receive a nerve block
[2024-08-29 10:15] VITALS: BP 162/88; PULSE 73; RESP 18; TEMP 36.4; O2SAT 94
[2024-08-29 10:21] LABS: Abs Immature Grans 0.03 10^3/uL (0.0-0.06); Absolute Basophil Count 0.04 10^3/uL (0.0-0.2); Absolute Eosinophil Count 0.13 10^3/uL (0.0-0.7); Absolute Lymphocyte Count 2.32 10^3/uL (1.2-3.4); Absolute Monocyte Count 0.66 10^3/uL (0.1-0.8); Absolute Neutrophil Count 5.85 10^3/uL (1.2-6.7); Basophils % 0.4 %; Eosinophils % 1.4 %; HCT 53.9 % (40.0-50.0); Immature Grans % 0.3 %; Lymphocytes % 25.7 %; MCH 26.9 pg (27.0-33.0); MCHC 31.5 % (32.0-36.0); MCV 85 fL (80-95); MPV 11.3 fL (8.0-11.0); Monocytes % 7.3 %; Neutrophils % 64.9 %; Platelet Count 128 10^3/uL (130-400); RBC 6.32 10^6/uL (4.36-5.78); RDW 14.4 % (11.8-14.1); RDW-SD 44.5 fL; WBC 9.03 10^3/uL (4.4-10.8)
[2024-08-29 10:31] LABS: C-Reactive Protein < 0.50 mg/dL (<or=0.5)
[2024-08-29 11:01] LABS: Ferritin 153 ng/mL (26-388); Vitamin B12 198 pg/mL (193-986)
[2024-08-30 13:02] LABS: ANCA Interpretation Negative (Negative)
[2024-08-30 13:08] LABS: ANA Interpretation Positive (Negative); ANA Titer Pattern 1:160 Speckled
== END 2024-08-29 11:24 | disposition home or self-care (01) ==
LOC: SUR 07:33
PROVIDERS: PCP Nurse Practitioner Family; Visit Provider Surgery
PROC: 0DJD8ZZ Inspection of Lower Intestinal Tract, Via Natural or Artificial Opening Endoscopic (ICD-10-PCS; CPT 45378; principal; 2024-08-29 08:30)
DX: Z12.11 Encounter for screening for malignant neoplasm of colon (principal); Z80.0 Family history of malignant neoplasm of digestive organs; R63.5 Abnormal weight gain; D12.5 Benign neoplasm of sigmoid colon
CPT/HCPCS: 45385; 45380; 36415; 86255; 88305; 82607; 82728; 82746; 85025; 86038; 86140; J2704; J7620

== ENCOUNTER → 2024-09-11 09:53 | Outpatient (BNVA) | payer MEDICARE, SELFPAY | PROVIDERS: PCP Nurse Practitioner Family; Referring Provider Nurse Practitioner Family; Visit Provider Surgery | DX: K55.1 Chronic vascular disorders of intestine (principal); K75.81 Nonalcoholic steatohepatitis (NASH); D36.9 Benign neoplasm, unspecified site; I70.90 Unspecified atherosclerosis; F10.11 Alcohol abuse, in remission; Z80.0 Family history of malignant neoplasm of digestive organs; Z87.891 Personal history of nicotine dependence | CPT/HCPCS: 99214 ==

== ENCOUNTER 2024-09-25 02:04 | Outpatient (CLI) | payer MEDICARE, SELFPAY ==
--- NOTE | 2024-09-25 07:13 | DI.CT_ITS ---
Exam(s) CT ABDOMEN PELVIS CTA EXAM: CT ABDOMEN PELVIS CTA CLINICAL HISTORY: ischemic colitis,atherosclerosis,mash,liver fibrosis. TECHNIQUE: Imaging Protocol: Axial CT angiography was performed with multi-slice acquisition and m ulti-planar and/or 3D reconstructions. CONTRAST MATERIAL: Intravenous: Omnipaque 350 Contrast volume:100mL Oral: No COMPARISON: CT ABD PELVIS WITH CONTRAST from 02/19/[address] ABDOMEN PELVIS W from 07/30/2024 FINDINGS: ABDOMEN AND PELVIS: Abdomen: Celiac axis/mesenteric arteries: No evidence of occlusion or significant stenosis. Renal Arteries: No evidence of occlusion or significant stenosis. There is mild calcifications seen i n the right renal artery. Aorta: No evidence of occlusion or significant stenosis. No aneurysm or dissection. Atherosclerotic calcification is present. Pelvis: Iliac Arteries: No evidence of occlusion or significant stenosis. Atherosclerotic calcification is p resent. Common Femoral Arteries: No evidence of occlusion or significant stenosis. Atherosclerotic calcifica tion is present ABDOMEN: Lung bases: Unremarkable. Liver: Normal density. There are several tiny hypodensities in the liver. They are too small for fur ther characterization but likely reflect small cysts. No suspicious hepatic lesions are present. Portal, Superior Mesenteric, and Splenic Veins: Unremarkable. Gallbladder and Biliary Tract: No radiodense calculus or dilation. Pancreas: There again seen pancreatic calcifications. No evidence of a pancreatic mass. No inflamma tion is seen around the pancreas. Spleen: Normal. Adrenals: No masses seen. Kidneys: Normal size, contour and axis. No radiodense stones or obstructive uropathy. There is a stab le left renal cyst. No follow-up is recommended. 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 Bowel: No obstruction or bowel wall thickening. No evidence of appendicitis. Peritoneal Cavity: No ascites, collection or mesenteric inflammatory response. No free air. Lymph Nodes: Within normal limits. Bones: Age-appropriate degenerative changes are present. There has been no change in appearance of t he L4 and L5 vertebral bodies. Soft Tissues: There is a small fat containing umbilical hernia. There is a small fat containing righ t inguinal hernia. PELVIS: Bladder: Urinary bladder is incompletely distended limiting evaluation. There is diffuse thickening of the wall which may be due to chronic bladder outlet obstruction, but cystitis cannot be excluded. Please correlate clinically. Reproductive Organs: The prostate gland is mildly enlarged. Lymph Nodes: Within normal limits. Bones: Within normal limits. IMPRESSION: 1. The superior mesenteric artery and vein are patent and unremarkable. 2. No evidence of abdominal aortic aneurysm or dissection. 3. Thickening of the wall of the urinary bladder. This may be due to underdistention but cystitis ca nnot be excluded. Please correlate clinically and follow-up appropriately. RADIATION DOSE DELIVERED: 1,179.81mGy.cm Total DLP DATA REPOSITORY: All CT scans at this facility are submitted to the National Radiology Data Registry (NRDR) Dose Index Registry (DIR) with the [employer] (ACR). RADIATION OPTIMIZATION: All CT scans at this facility use at least one of these dose optimization te chniques: automated exposure control; mA and/or kV adjustment per patient size (includes targeted exa ms where dose is matched to clinical indication); or iterative reconstruction.
[2024-09-25 10:14] LABS: Estimated GFR 80.47 (mL/min/1.73m2)
[2024-09-25] MEDS: Omnipaque 350 MG/ML 100 ML BTL IJ (10:25)
[2024-09-25] MEDS: Normal Saline - Diluent 50 ML VIAL IJ (10:25)
== END 2024-09-25 02:24 ==
LOC: DI 02:05
PROVIDERS: PCP Nurse Practitioner Family; Visit Provider Surgery
DX: K55.1 Chronic vascular disorders of intestine (principal); E78.00 Pure hypercholesterolemia, unspecified; F10.11 Alcohol abuse, in remission; J44.9 Chronic obstructive pulmonary disease, unspecified; Z87.891 Personal history of nicotine dependence
CPT/HCPCS: 74174; 82565; J3490

== ENCOUNTER 2024-11-03 15:09 | Outpatient (REF) | payer MEDICARE, SELFPAY | END 2024-11-03 15:10 | disposition home or self-care (01) | LOC: LBN 15:09 | PROVIDERS: PCP Nurse Practitioner Family; Visit Provider Nurse Practitioner Family | DX: H92.11 Otorrhea, right ear (principal); H66.91 Otitis media, unspecified, right ear | CPT/HCPCS: 87070; 87205 ==

== ENCOUNTER 2024-11-17 13:40 | Emergency (ER) | payer MEDICARE, SELFPAY ==
[2024-11-17 14:02] VITALS: BP 150/91; PULSE 65; RESP 20; TEMP 36.7; O2SAT 93
--- NOTE | 2024-11-17 14:21 | W.ED.GENAD ---
Discharge Plan Disposition Patient Disposition: Home Condition: Good Discharge Details Chief Complaint: Orthopedic Clinical Impression: Acute pain of left hip Primary Care Provider: Kourtney Patiño ED Provider: Pillo Ulloa Home Meds and New Rx's Prescriptions: No Action lisinopril 10 mg tablet 10 mg PO DAILY Patient Comments: TAKE ONE TABLET BY MOUTH EVERY DAY IN THE MORNING FOR HIGH BLOOD PRESSURE albuterol sulfate [ProAir HFA] 200 PUFF/INH HFA aerosol inhaler 2 puff Inhalation Q4H PRN PRN ondansetron 4 mg tablet,disintegrating 4 mg PO Q6H PRN (Reason: nausea and vomiting) Qty: 20 0RF atorvastatin 40 mg tablet 40 mg PO QPM Patient Comments: TAKE 1 TABLET BY MOUTH EVERY NIGHT AT BEDTIME TO PREVENT STROKES Incruse Ellipta 62.5 mcg/actuation blister with device 1 inh INHALATION DAILY Discharge Instructions Instructions: Hip Pain ED Additional Instructions: At this time the x-ray shows no evidence of fracture. Please take 1000 mg of Tylenol every 6 hours to help with the pain. Please apply the Voltaren gel 3-4 times per day to the hip to help with the pain. Please ice frequently. If you still have persistent pain after 1 to 2 weeks of this conservative therapy you may require further evaluation by potential MRI. If you notice any worsening of your symptoms, or any new symptoms such as vomiting, diarrhea, fever, chills, shortness of breath, chest pain, numbness, weakness, or fainting , please return immediately to the emergency department for reevaluation. Please follow up with your primary care provider as soon as possible for reassessment and reevaluation. As always, it was a pleasure participating in your medical care today. Referrals: Kourtney Patiño [Primary Care Provider] - [facility] General Date/Time Provider Initiated Documentation: 11/17/24 14:06. HPI Narrative: 69-year-old male with a past medical history of mash, COPD, high cholesterol, previous alcohol abuse, who presents today for evaluation of left hip pain. Patient states that for the last week he has had mild achiness in his left hip. He states that there was no trauma. He has never had pain that this before. No injury to the hip in the past. He admits to occasional shooting pain that goes from the left hip down towards the knee with certain movements. He denies fever or chills. He denies numbness or tingling. He did take an Advil last night which did not significantly improve the pain. No other complaints at this time. Pain is made worse with ambulation. It is slightly improved with rest. Related Data Home Medications ?Medication ?Instructions ?Recorded ?Confirmed albuterol sulfate 90 mcg/actuation 2 puff inhalation Q4H PRN PRN 01/16/18 11/17/24 aerosol inhaler (ProAir HFA) atorvastatin 40 mg tablet 40 mg PO QPM 08/26/21 11/17/24 umeclidinium 62.5 mcg/actuation 1 inh inhalation DAILY 08/26/21 11/17/24 blister powder for inhalation (Incruse Ellipta) ondansetron 4 mg disintegrating 4 mg PO Q6H PRN nausea and 07/30/24 11/17/24 tablet vomiting #20 tabs lisinopril 10 mg tablet 10 mg PO DAILY 11/03/24 11/17/24 Previous Rx's ?Medication ?Instructions ?Recorded ondansetron 4 mg disintegrating 4 mg PO Q6H PRN nausea and 07/30/24 tablet vomiting #20 tabs Allergies Allergy/AdvReac Type Severity Reaction Status Date / Time Sulfa (Sulfonamide AdvReac Intermediate Swelling/Ed Verified 11/03/24 13:46 Antibiotics) cristobal General Stated Complaint: Orthopedic DAELE: 4 Exam Narrative Exam Narrative: 1.Const: Well-nourished, Well-developed, appearing stated age 2.Eyes: PERRL, no conjunctival injection, and symmetrical lids. 3.ENT: Atraumatic external nose and ears. Moist MM. Neck: Symmetric, trachea midline, No thyromegaly. 4.CVS: +S1/S2, Peripheral pulses 2+ and equal in all extremities. Brisk capillary refill in all extremities. 5.RESP: Unlabored respiratory effort. Clear to auscultation bilaterally. No wheezes rales or rhonchi 6.GI: Soft, Nontender/Nondistended, No hepatosplenomegaly. No guarding or rebound. 7.MSK: Normocephalic/Atraumatic, Extremities w/o deformity or ttp No cyanosis or clubbing, Normal movement of all extremities. Patient's left hip demonstrates tenderness on palpation of the greater trochanter, pain is present with internal and external rotation, worse for internal rotation. Mild pain with logroll. Mild pain with ambulation. No redness or warmth around the hip joint. No tenderness in the back, spine or femur otherwise. 8.Skin: Warm, Dry. No rashes or lesions. 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 Sensation grossly intact, no focal neurologic deficits. 10.Psych: (AAO) x3. Appropriate mood and affect Course Vital Signs Vital signs: Vital Signs Temperature 36.7 C 11/17/24 14:02 Pulse 65 11/17/24 14:02 Respiratory Rate 20 11/17/24 14:02 Blood Pressure 150/91 H 11/17/24 14:02 Pulse Oximetry 93 11/17/24 14:02 Temperature 36.7 C 11/17/24 14:02 Temperature Source Oral 11/17/24 14:02 Pulse 65 11/17/24 14:02 Respiratory Rate 20 11/17/24 14:02 Blood Pressure 150/91 H 11/17/24 14:02 Blood Pressure Position Sitting 11/17/24 14:02 Pulse Oximetry 93 11/17/24 14:02 Oxygen Delivery Method Room Air 11/17/24 14:02 Oxygen Flow Rate 0 11/17/24 14:02 Pain Level 7 11/17/24 14:02 Medical Decision Making 69-year-old male with a past medical history of mash, COPD, high cholesterol, previous alcohol abuse, who presents today for evaluation of left hip pain. Patient states that for the last week he has had mild achiness in his left hip. He states that there was no trauma. He has never had pain that this before. No injury to the hip in the past. He admits to occasional shooting pain that goes from the left hip down towards the knee with certain movements. He denies fever or chills. He denies numbness or tingling. He did take an Advil last night which did not significantly improve the pain. No other complaints at this time. Pain is made worse with ambulation. It is slightly improved with rest. Patient's left hip demonstrates tenderness on palpation of the greater trochanter, pain is present with internal and external rotation, worse for internal rotation. Mild pain with logroll. Mild pain with ambulation. No redness or warmth around the hip joint. No tenderness in the back, spine or femur otherwise. Concern is for bursitis, arthritis, less likely fracture. No evidence to suggest septic joint. Will get an x-ray, give NSAID therapy, monitor closely and reassess. 3:05 PM X-ray negative for acute process. Suspect bursal irritation, arthritis, or joint inflammation. Recommend continued NSAID therapy including Tylenol, Voltaren gel, and ice. Discussed red flags for which to return. I have extensively reviewed the treatment plan and discharge instructions with the patient. I have addressed all patient concerns at this time. The patient was made aware of what symptoms to monitor for that would warrant a return to the emergency department. Discussed the plan with the patient, they demonstrate verbal understanding and agreement with our assessment and plan at this time. The documentation in this chart was dictated using [employer] dictation software. Please excuse any dictation errors. FINDINGS: BONES: No acute fracture is present. No bony destructive lesion is seen. JOINTS: No dislocation present. There are mild arthritic changes of the left hip. Mild degenerative changes are seen in the lower lumbosacral spine. The sacroiliac joint is intact as is the symphysis pubis. SOFT TISSUE: Vascular calcifications are present. IMPRESSION: No acute fracture or dislocation is seen. Quality:SDOH Health Related Social Needs: No Data to Display PFSH All Active Problems (Updated 11/17/24 @ 15:04 by Pillo Ulloa DO) Acute pain of left hip (Acute) Atherosclerosis (Acute) Adenomatous polyps (Acute) repeat CE in 2029 Liver fibrosis (Acute) 2017 Fibro scan Stage F3 Former cigar smoker (Acute) Chronic ischemic colitis (Acute) Ascending colon Metabolic dysfunction-associated steatohepatitis (MASH) (Acute) Family history of colon cancer in mother (Acute) Medical History History of ETOH abuse High cholesterol COPD (chronic obstructive pulmonary disease) Surgical History History of colonoscopy (~07/2024) Social History Smoking/Tobacco Use Status: Former Tobacco Use Quit Date: 03/30/24 Smoking risk assessment performed?: Yes Alcohol Intake: current Alcohol Intake frequency: holidays/special occasions only Alcohol type: beer Substance use type: marijuana Details: uses kun regularly Housing: house Do you feel safe at home: Yes Do you feel safe in your relationship?: Yes
--- NOTE | 2024-11-17 14:37 | DI.RAD_ITS ---
Exam(s) XR HIP LT COMPLETE AP PELVIS EXAM: XR HIP LT COMPLETE AP PELVIS CLINICAL HISTORY: left hip pain, eval for fx. TECHNIQUE: 2D digital imaging was performed of the left hip. Two views were obtained. AP pelvis an d lateral left hip views were obtained. COMPARISON: CT CT ABDOMEN PELVIS CTA from 09/25/2024 FINDINGS: BONES: No acute fracture is present. No bony destructive lesion is seen. JOINTS: No dislocation present. There are mild arthritic changes of the left hip. Mild degenerative changes are seen in the lower lumbosacral spine. The sacroiliac joint is intact as is the symphysis pubis. SOFT TISSUE: Vascular calcifications are present. IMPRESSION: No acute fracture or dislocation is seen. DATA REPOSITORY: RADIATION DOSE DELIVERED:
[2024-11-17] MEDS: Acetaminophen 500 MG TAB 1000 MG PO (14:51)
[2024-11-17] MEDS: Ibuprofen 800 MG TAB PO (14:51)
[2024-11-17] MEDS: Diclofenac 1% Gel 100 GM TUBE TP (14:51)
== END 2024-11-17 15:27 | disposition home or self-care (01) ==
PROVIDERS: Emergency Provider Student in an Organized Health Care Education/Training Program; PCP Nurse Practitioner Family
DX: M25.552 Pain in left hip (principal); J44.9 Chronic obstructive pulmonary disease, unspecified; I10 Essential (primary) hypertension; Z87.891 Personal history of nicotine dependence
CPT/HCPCS: 99283; 73502

== ENCOUNTER 2025-04-27 15:07 | Outpatient (CLI) | payer MEDICARE, SELFPAY ==
--- NOTE | 2025-04-27 12:07 | DI.RAD_ITS ---
Exam(s) XR CHEST 2V PA LATERAL EXAM: XR CHEST 2V PA LATERAL CLINICAL HISTORY: evaluate patholgy COUGH R05.9. TECHNIQUE: 2D digital imaging was performed. COMPARISON: CR XR CHEST 2V PA LATERAL from 12/23/2021 CR,XR XR PORTABLE CHEST AP from 03/05/2022 FINDINGS: 2 views: Heart size is normal. The mediastinum is not widened. Chronic fracture deformities of upper right ribs again noted unchanged from at least 2021. No new right lung findings. However, there is some patchy infiltrate in the lower left lung field. Mild blunting of left costophrenic angle may indicate a small amount left pleural fluid. IMPRESSION: Left lung base infiltrate and possible small left pleural effusion Chronic and unchanged right upper chest wall deformity. DATA REPOSITORY: RADIATION DOSE DELIVERED:
== END 2025-04-27 15:27 ==
LOC: DI 15:07
PROVIDERS: PCP Nurse Practitioner Family; Visit Provider Nurse Practitioner Family
DX: R05.9 Cough, unspecified (principal); R91.8 Other nonspecific abnormal finding of lung field
CPT/HCPCS: 71046

== ENCOUNTER → 2025-05-14 12:53 | Outpatient (BNVA) | payer MEDICARE, SELFPAY | PROVIDERS: PCP Nurse Practitioner Family; Referring Provider Nurse Practitioner Family; Visit Provider Internal Medicine Pulmonary Disease | DX: J44.9 Chronic obstructive pulmonary disease, unspecified (principal); J90 Pleural effusion, not elsewhere classified; R91.1 Solitary pulmonary nodule | CPT/HCPCS: 99215 ==

== ENCOUNTER 2025-05-17 00:38 | Outpatient (CLI) | payer MEDICARE, SELFPAY ==
[2025-05-17] MEDS: Levalbuterol HFA 15 GM INH 4 PUFF IH (08:59)
[2025-05-17] MEDS: Inhaler, Assist Device 1 EACH MC (08:59)
--- NOTE | 2025-05-17 10:11 | W.PFT ---
Date of service: 05/17/25 Time of Service: 08:03 Pulmonary Function Test Result Indications: COPD Impression 1. Good patient effort was noted. ATS standards for reproducibility were met. 2. Spirometry showed moderate obstructive lung disease with an FEV1 of 60% (1.56 L) 3. Following the administration of a bronchodilator there was not a significant response 4. TLC was normal. No evidence of restrictive lung disease 5. DLCO was 68%, consistent with a mild defect in alveolar gas exchange
== END 2025-05-17 00:39 | disposition home or self-care (01) ==
LOC: RT 00:38
PROVIDERS: PCP Nurse Practitioner Family; Visit Provider Internal Medicine Pulmonary Disease
DX: J44.9 Chronic obstructive pulmonary disease, unspecified (principal)
CPT/HCPCS: 94060; 94726; 94729

== ENCOUNTER 2025-05-17 04:10 | Outpatient (CLI) | payer MEDICARE, SELFPAY ==
--- NOTE | 2025-05-17 06:30 | DI.CT_ITS ---
Exam(s) CT CHEST WO EXAM: CT CHEST WO CLINICAL HISTORY: Pulmonary nodule,copd,r91.1,j44.9. TECHNIQUE: Imaging protocol: Axial computed tomography images were obtained and coronal and sagittal reformatted images were created and reviewed. Lung Computer Aided Detection (CAD) was utilized. COMPARISON: CT CT CHEST LUNG CANCER SCREEN from 04/28/[address] CHEST LUNG CANCER SCREEN from 06/29/[address] CHEST LUNG CANCER SCREEN from 07/20/2024 CR XR CHEST 2V PA LATERAL from 04/27/2025 FINDINGS: Tracheobronchial tree: Patent where visualized. No bronchiectasis is present. Pulmonary parenchyma: No consolidation or dominant measurable mass. Stable areas of scarring are seen in the left lower lobe and the posterior aspect of the right upper lobe. There are no new infiltrates present. The left lower lobe pulmonary nodule is stable. There are no new pulmonary nodules present. Mediastinum and Moira: No dominant adenopathy or fluid collection. The esophagus is unremarkable. Thyroid gland: Unremarkable. Pleura: No effusion or pneumothorax. Heart: The heart is not dilated. Mild coronary artery calcification. Mitral calcification is noted. No pericardial effusion. Aorta: Thoracic aorta non-dilated. Atherosclerotic calcification is present. Upper abdomen: Unremarkable. Lymph nodes: Within normal limits. Soft tissues: Unremarkable. Bones:Within normal limits for the patient's age. IMPRESSION: 1. Stable pulmonary nodules. There are no new pulmonary nodules. 2. No acute pulmonary process. RADIATION DOSE DELIVERED: 319.4mGy.cm Total DLP 319.4mGy.cm Total DLP DATA REPOSITORY: All CT scans at this facility are submitted to the National Radiology Data Registry (NRDR) Dose Index Registry (DIR) with the [employer] (ACR). RADIATION OPTIMIZATION: All CT scans at this facility use at least one of these dose optimization techniques: automated exposure control; mA and/or kV adjustment per patient size (includes targeted exams where dose is matched to clinical indication); or iterative reconstruction.
== END 2025-05-17 04:30 ==
PROVIDERS: PCP Student in an Organized Health Care Education/Training Program; Visit Provider Internal Medicine Pulmonary Disease
DX: J44.9 Chronic obstructive pulmonary disease, unspecified (principal); R91.1 Solitary pulmonary nodule
CPT/HCPCS: 71250

== ENCOUNTER → 2025-05-31 14:29 | Outpatient (BNVA) | payer MEDICARE, SELFPAY | PROVIDERS: PCP Physician Assistant; Referring Provider Nurse Practitioner Family; Visit Provider Internal Medicine Pulmonary Disease | DX: J44.9 Chronic obstructive pulmonary disease, unspecified (principal); R91.1 Solitary pulmonary nodule; F17.211 Nicotine dependence, cigarettes, in remission | CPT/HCPCS: 99214 ==

== ENCOUNTER 2025-07-11 10:01 | Outpatient (REF) | payer MEDICARE, SELFPAY ==
[2025-07-11 16:23] LABS: HCT 52.5 % (40.0-50.0); HGB 16.4 g/dL (13.5-17.5); MCH 26.8 pg (27.0-33.0); MCHC 31.2 % (32.0-36.0); MCV 86 fL (80-95); MPV 11.4 fL (8.0-11.0); Platelet Count 156 10^3/uL (130-400); RBC 6.12 10^6/uL (4.36-5.78); RDW 15.2 % (11.8-14.1); RDW-SD 47.5 fL; WBC 9.63 10^3/uL (4.4-10.8)
[2025-07-11 16:47] LABS: ALT 19 U/L (10-49); AST 22 U/L (<34); Albumin 4.4 g/dL (3.4-5.0); Alkaline Phosphatase 75 U/L (46-116); Anion Gap 4.5 mmol/L (3-11); BUN 11 mg/dL (9-23); Bilirubin, Total 0.30 mg/dL (0.2-1.2); CO2 28.5 mmol/L (20.0-31.0); Calcium 9.1 mg/dL (8.3-10.6); Chloride 108 mmol/L (98-107); Cholesterol 111 mg/dL (<200); Glucose 99 mg/dL (74-106); HDL Cholesterol 48 mg/dL (>40); Potassium 4.7 mmol/L (3.5-5.1); Sodium 141 mmol/L (136-145); Total Protein 6.8 g/dL (5.7-8.2)
[2025-07-11 17:31] LABS: Hemoglobin A1C 6.0 % (<5.7)
== END 2025-07-11 10:02 | disposition home or self-care (01) ==
LOC: NCHCN 10:01
PROVIDERS: PCP Physician Assistant; Visit Provider Physician Assistant
DX: E78.5 Hyperlipidemia, unspecified (principal); I10 Essential (primary) hypertension; R73.03 Prediabetes
CPT/HCPCS: 80053; 80061; 85027; 83036